=== PATIENT | male | born 1930 | race Caucasian/White ===

== ENCOUNTER 2016-07-08 11:50 | Inpatient (IN) | payer MEDICARE, OTHER ==
[~2016-07-08] VITALS: Ht 165.1 cm; Wt 70.8 kg
--- NOTE | ~2016-07-08 | PR ---
[place], [place] PROGRESS NOTE NAME: [id number] UNIT #: [id number] ROOM: 509 DOCTOR: ROSETTA BESS MD BIRTHDATE: [birth year] DOS: 07/10/2016 SUBJECTIVE: The patient is feeling much better. The abdominal pains are resolving and he has started eating. OBJECTIVE: VITAL SIGNS: Blood pressure 127/56, heart rate 74 beats per minute, breathing 20 times per minute, temperature 98 degrees Fahrenheit. GENERAL APPEARANCE: The patient is alert and oriented x 3, in no visible distress. HEENT AND NECK: Exam within normal limits. CARDIOVASCULAR SYSTEM: Heart rate is regular in rate and rhythm. S1 and S2 normally audible. LUNGS: Clear to auscultation. ABDOMEN: Soft, nontender. No obvious organomegaly. Bowel sounds are present. EXTREMITIES: Without significant cyanosis or edema. IMPRESSION: 1. The patient with acute sigmoid diverticulitis with localized perforation. He is clinically improving with Levaquin and Flagyl. The patient had failed outpatient treatment with Augmentin. 2. Benign prostatic hypertrophy, treated with medications and asymptomatic. 3. Benign essential hypertension with controlled blood pressures. 4. Coronary artery disease of [place] vessels without chest pains. 5. Mixed hyperlipidemia, treated with simvastatin. 6. Major depression, recurrent, mild, treated with citalopram. ROSETTA BESS MD CM:PNTRANS [id number] ROSETTA BESS MD 07/10/162115 interface
--- NOTE | ~2016-07-08 | PR ---
[place], [place] PROGRESS NOTE [id number] UN[facility] #: [id number] ROOM: 509 DOCTOR: LALY SORIANO MD BIRTHDATE: [birth year] DOS: 07/09/2016 SUBJECTIVE: The patient is about the same, does not have any new complaints. OBJECTIVE: VITAL SIGNS: ____ pressure 133/70, pulse is 72, respirations 14, temperature 98.1. LUNGS: Diminished breath sounds. HEART: Regular. ABDOMEN: Obese, soft, some minimal tenderness in the left lower quadrant. EXTREMITIES: Without any edema. LABORATORY DATA: WBC count is 7.7, hemoglobin 11.2. Lactic acid is 0.8. Chest x-ray is unremarkable. CT of the abdomen shows a perforated acute diverticulitis with pericolonic abscess present. ASSESSMENT AND PLAN: 1. Acute diverticulitis with perforation, pericolonic abscess, which seems to have localized. The patient has normal white cell count, no fevers, no lactic acid elevation. Dr. Rashid is following and the plan is to just keep him n.p.o. on IV fluids and IV antibiotics and feels that this will resolve on its own without surgical option. 2. Benign hypertension, controlled. 3. Benign prostatic hypertrophy, already on meds. No changes made in any of his medications today. LALY SORIANO MD CM:PNTRANS [phone] LALY SORIANO MD 07/09/16 0856 interface
--- NOTE | ~2016-07-08 | WRIGHTHP ---
[place], [place] PATIENT HISTORY AND PHYSICAL EXAM NAME: ED JENNINGS V [facility] #: [id number] UNIT #: [id number] ROOM: 509 DOCTOR: ROSETTA BESS MD BIRTHDATE: [birth year] DOS: 07/08/2016 HISTORY OF PRESENT ILLNESS: The patient is an 86-year-old gentleman with a past medical history of: 1. Coronary artery disease and PA. 2. Benign essential hypertension. 3. GERD and esophagitis. 4. Mixed hyperlipidemia. 5. Major depression, recurrent, mild. 6. Chronic gouty arthritis. 7. BPH and urinary retention, controlled, treated. The patient was sent over for admission when he was found to have perforated diverticulitis of the sigmoid colon, which was localized on CT scan of the abdomen and pelvis performed by Dr. Rashid today. The patient had this persisting left lower quadrant pain for some time now and he was eating less and losing weight. No nausea, vomiting, diarrhea, or constipation. No chest pain or shortness of breath. No other GI or urinary symptoms. REVIEW OF SYSTEMS: LUNGS: No shortness of breath or wheezing. GASTROINTESTINAL: No nausea, vomiting, diarrhea, or constipation. FAMILY HISTORY: Noncontributory. SOCIAL HISTORY: Denies smoking cigarettes, alcohol or drug abuse. MEDICATIONS: Propranolol, finasteride, citalopram, aspirin, Protonix, prazosin, simvastatin, hydromorphone. ALLERGIES: KNOWN ALLERGIES TO ALLOPURINOL, CEFAZOLIN, CEFTRIAXONE, SULPHUR. PHYSICAL EXAMINATION: GENERAL: The patient is alert and oriented x 3, in no visible distress. HEENT AND NECK: Extraocular movements are intact. Sclerae are anicteric. Oral mucosa is moist and clean. No obvious facial weakness. Neck is supple without any lymphadenopathy. No thyromegaly. No JVD. No carotid arterial bruits. LUNGS: Clear to auscultation. No wheezing. No rhonchi. CARDIOVASCULAR SYSTEM: Heart rate is regular in rate and rhythm. S1 and S2 normally audible. No significant murmur or any other abnormal cardiac sounds. ABDOMEN: Left lower quadrant tenderness. No rigidity, guarding, or rebound tenderness. EXTREMITIES: Without significant cyanosis or edema. Warm to touch. CENTRAL NERVOUS SYSTEM: Alert and oriented x 3. Cranial nerves II-XII are intact. Speech is normal. The patient is able to move all extremities. Normal muscle strength. Deep tendon reflexes are equal on both sides. Plantars were downgoing. LABORATORY DATA: No leukocytosis. Hemoglobin 13. CT scan results as mentioned above. BUN and creatinine 34 and 1.5. [place], [place] PATIENT HISTORY AND PHYSICAL EXAM [facility]: [facility] [id number] UNIT #: [id number] ROOM: 509 DOCTOR: ROSETTA BESS MD BIRTHDATE: [birth year] IMPRESSION AND PLAN: 1. The patient presenting with acute over chronic perforated diverticulitis of the sigmoid colon, the perforation is localized and suspicion of pericolonic abscess. The patient was kept n.p.o. and started on IV Levaquin and Flagyl, with Dr. Rashid, the surgeon on consult. I will start him on hydration with normal saline and follow his serum electrolytes. The patient is n.p.o. for now. 2. Coronary artery disease of [place] vessels without any chest pain. He remains on aspirin. 3. Benign prostatic hyperplasia and urinary retention, asymptomatic with finasteride and prazosin, which have been continued. 4. Mixed hyperlipidemia, for which the patient takes simvastatin. 5. Major depression, mild, recurrent. The patient is on citalopram, which has been continued. ROSETTA BESS MD CM:HISPHYS:PATIENT HISTORY AND PHYSICAL EXAMINATION 41 [phone] ROSETTA BESS MD 07/09/16 0132 interface
--- NOTE | ~2016-07-08 | DS ---
[place], [place] DISCHARGE SUMMARY [facility]: [facility] #: [id number] UNIT #: [id number] ROOM: 509 DOCTOR: MARIA ALEJANDRA GALARZAROSETTA Aguilar BIRTHDATE: [birth year] DOS: 07/11/2016 DISCHARGE DIAGNOSES: 1. Acute sigmoid diverticulitis with localized perforation and abscess treated with Flagyl and Levaquin. 2. Benign prostatic hypertrophy. 3. Benign essential hypertension. 4. Coronary artery disease of the [place] vessels. 5. Mixed hyperlipidemia. 6. Major depression, recurrent, mild. 7. Benign essential hypertension. 8. Gastroesophageal reflux disease and esophagitis. 9. Mixed hyperlipidemia. 10. Chronic gouty arthritis. 11. BPH and urine retention. 12. Chronic kidney disease stage 3A. HOSPITAL COURSE: The patient was admitted with a perforated diverticulitis as seen on the CAT scan of the abdomen and pelvis. Dr. Rashid was consulted and followed the patient and has cleared him for discharge after he is tolerating his diet and feeling better, although he still has left lower quadrant pains, but improved from before. I will give him 2 more weeks of antibiotics at home orally. Coronary artery disease of [place] vessels without chest pains. The patient remains on aspirin. Benign prostatic hypertrophy and urinary retention is symptomatic with finasteride and prazosin being treated and continued. Mixed hyperlipidemia treated with simvastatin, which was continued. Major depression, which is recurrent, but mild, treated with citalopram which is working. LABORATORY DATA: CT scan results as mentioned above. No leukocytosis. Hemoglobin 10.3, BUN and creatinine 28 and 1.4. Chronic kidney disease stage 3A. No leukocytosis. Hemoglobin of 10.3. Blood cultures were negative. DISCHARGE MANAGEMENT: Levaquin 750 mg every other day 8 doses and metronidazole 500 mg 3 times a day for 10 days, propranolol 80 mg daily, finasteride 5 mg a day, citalopram 20 mg a day, aspirin 325 mg a day, Protonix 40 mg a day, simvastatin 10 mg a day, prazosin 2 mg a day. Follow up at the office with me in 3 days. The patient's pain was controlled with p.r.n. Dilaudid and nausea was controlled with Zofran, but these symptoms have resolved now. [place], [place] DISCHARGE SUMMARY NAME: ED JENNINGS V UNIT #: [id number] ROOM: [facility] DOCTOR: ROSETTA BESS MD BIRTHDATE: [birth year] ROSETTA BESS MD CM:JOSE [phone] ROSETTA BESS MD 07/11/16 1855 interface
[~2016-07-08 11:50] MED LIST: ASPIR-TRIN325 MG PO; CITALOPRAM20 MG PO; DAYPRO600 M1 PO; FINASTERIDE5 M1 PO; PROPRANOLOL HYD80 M1 PO; PROTONIX40 MG PO; SIMVASTATIN20 MG PO; TERAZOSIN HCL2 M1 PO; ULORIC40 MG PO; VITAMIN D1000 IU PO
[2016-07-08 12:02] VITALS: BP 170/80
[2016-07-08 12:41] LABS: BASO % 0.5 % (0.0-1.0); EOS # 0.2 10*3/uL (0.0-0.4); EOS % 3.1 % (1.0-4.0); HEMOGLOBIN 13.1 g/dl (14.0-18.0); IG # 0.1 10*3/uL (0.0-0.1); LYMPH # 1.1 10*3/uL (1.3-4.4); LYMPH % 13.5 % (27.0-41.0); MEAN CELL VOLUME 87.6 fl (80.0-94.0); MEAN PLATELET VOLUME 9.2 fl (9.6-12.3); MONO # 0.4 10*3/uL (0.1-1.0); MONO % 5.5 % (3.0-9.0); NEUT % 76.3 % (47.0-73.0); PLATELET COUNT AUTOMATED 274 10*3/uL (130-400); RED BLOOD COUNT 4.68 10*6/uL (4.50-5.90); RED CELL DISTRI WIDTH 13.9 % (0-14.5); WHITE BLOOD COUNT 7.8 10*3/uL (4.8-10.8)
[2016-07-08 12:58] LABS: ALBUMIN 3.2 gm/dl (3.1-4.5); BILIRUBIN, TOTAL 0.5 mg/dl (0.2-1.0); POTASSIUM 4.6 mmol/L (3.5-5.1); TOTAL PROTEIN 7.9 gm/dL (6.4-8.2)
[2016-07-08 13:28] LABS: BILIRUBIN NEGATIVE (NEGATIVE); BLOOD NEGATIVE (NEGATIVE); CLARITY SL CLOUDY (CLEAR); COLOR YELLOW (YELLOW); GLUCOSE NEGATIVE (NEGATIVE); KETONE NEGATIVE (NEGATIVE); LEUKO ESTERASE 1+ (NEGATIVE); NITRITE NEGATIVE (NEGATIVE); PROTEIN NEGATIVE (NEGATIVE)
[2016-07-08 13:38] LABS: BACTERIA 1+; URINE REFLEX COMMENT YES (NO); WBC 21-30 wbc/hpf (0-5)
[2016-07-08] MEDS ORDERED: NAPROXEN DELAY375 MG PO (14:00)
[2016-07-08 14:19] VITALS: BP 185/75
[2016-07-08] MEDS ORDERED: SENEXON8.6 M1 PO (15:31)
[2016-07-08] MEDS ORDERED: COL-RITE50 MG PO (15:31)
[2016-07-08 16:00] VITALS: BP 159/64
[2016-07-08 20:00] VITALS: BP 107/47
[2016-07-09] VITALS: BP 127/63
[2016-07-09 04:00] VITALS: BP 133/70
[2016-07-09 06:32] LABS: BASO % 0.4 % (0.0-1.0); EOS # 0.2 10*3/uL (0.0-0.4); EOS % 2.1 % (1.0-4.0); HEMATOCRIT 36.1 % (42.0-52.0); HEMOGLOBIN 11.2 g/dl (14.0-18.0); IG # 0.1 10*3/uL (0.0-0.1); LYMPH # 0.7 10*3/uL (1.3-4.4); LYMPH % 8.9 % (27.0-41.0); MEAN CELL VOLUME 89.4 fl (80.0-94.0); MEAN CORPUSCULAR HGB 27.7 pg (27.0-31.0); MEAN PLATELET VOLUME 9.4 fl (9.6-12.3); MONO # 0.5 10*3/uL (0.1-1.0); MONO % 6.4 % (3.0-9.0); NEUT # 6.2 10*3/uL (2.3-7.9); NEUT % 81.4 % (47.0-73.0); PLATELET COUNT AUTOMATED 241 10*3/uL (130-400); RED BLOOD COUNT 4.04 10*6/uL (4.50-5.90); RED CELL DISTRI WIDTH 13.9 % (0-14.5); WHITE BLOOD COUNT 7.7 10*3/uL (4.8-10.8)
[2016-07-09 07:06] LABS: BUN 32 mg/dl (7-24); CARBON DIOXIDE 24 mmol/L (21-32); CHLORIDE 111 mmol/L (98-107); EST GLOM FILT AFRICAN AMERICAN > 60 ml/min; GLUCOSE 81 mg/dL (65-99); POTASSIUM 4.9 mmol/L (3.5-5.1); SODIUM 145 mmol/L (136-145)
[2016-07-09 08:00] VITALS: BP 112/50
[2016-07-09 16:00] VITALS: BP 113/50
[2016-07-09 20:00] VITALS: BP 117/53
[2016-07-10] VITALS: BP 190/88
[2016-07-10 07:03] LABS: BASO % 0.5 % (0.0-1.0); EOS # 0.2 10*3/uL (0.0-0.4); EOS % 2.5 % (1.0-4.0); HEMATOCRIT 35.4 % (42.0-52.0); IG # 0.1 10*3/uL (0.0-0.1); LYMPH # 0.7 10*3/uL (1.3-4.4); LYMPH % 8.9 % (27.0-41.0); MEAN CELL VOLUME 89.4 fl (80.0-94.0); MEAN CORPUSCULAR HGB 27.8 pg (27.0-31.0); MEAN CORPUSCULAR HGB CONC 31.1 g/dl (33.0-37.0); MONO # 0.5 10*3/uL (0.1-1.0); MONO % 6.1 % (3.0-9.0); NEUT # 6.1 10*3/uL (2.3-7.9); NEUT % 81.2 % (47.0-73.0); PLATELET COUNT AUTOMATED 206 10*3/uL (130-400); RED BLOOD COUNT 3.96 10*6/uL (4.50-5.90); RED CELL DISTRI WIDTH 13.9 % (0-14.5); WHITE BLOOD COUNT 7.6 10*3/uL (4.8-10.8)
[2016-07-10 07:28] LABS: POTASSIUM 4.7 mmol/L (3.5-5.1)
[2016-07-10 08:00] VITALS: BP 152/70
[2016-07-10 12:00] VITALS: BP 127/56
[2016-07-10 16:00] VITALS: BP 108/46
[2016-07-10 20:00] VITALS: BP 127/55
[2016-07-11] VITALS: BP 133/60
[2016-07-11 06:49] LABS: BASO % 0.4 % (0.0-1.0); EOS # 0.3 10*3/uL (0.0-0.4); EOS % 4.4 % (1.0-4.0); HEMATOCRIT 32.5 % (42.0-52.0); HEMOGLOBIN 10.3 g/dl (14.0-18.0); IG # 0.1 10*3/uL (0.0-0.1); LYMPH # 0.7 10*3/uL (1.3-4.4); LYMPH % 9.8 % (27.0-41.0); MEAN CELL VOLUME 88.6 fl (80.0-94.0); MEAN CORPUSCULAR HGB 28.1 pg (27.0-31.0); MEAN CORPUSCULAR HGB CONC 31.7 g/dl (33.0-37.0); MEAN PLATELET VOLUME 9.8 fl (9.6-12.3); MONO # 0.4 10*3/uL (0.1-1.0); MONO % 6.4 % (3.0-9.0); NEUT # 5.4 10*3/uL (2.3-7.9); PLATELET COUNT AUTOMATED 219 10*3/uL (130-400); RED BLOOD COUNT 3.67 10*6/uL (4.50-5.90); RED CELL DISTRI WIDTH 14.1 % (0-14.5); WHITE BLOOD COUNT 6.9 10*3/uL (4.8-10.8)
[2016-07-11 08:00] VITALS: BP 150/64
[2016-07-11 12:00] VITALS: BP 150/64
[2016-07-11 16:00] VITALS: BP 152/61
[2016-07-11] MEDS ORDERED: FLAGYL500 MG PO (18:12)
[2016-07-11] MEDS ORDERED: LEVAQUIN750 M1 PO (18:12)
== END 2016-07-11 19:00 | disposition home or self-care (01) | DRG 392 ==
LOC: ED 11:50 → 5E 13:36 → EDHOLD 13:36 → 5E 13:51
PROVIDERS: Emergency Medicine; Internal Medicine
DX: K57.20 Diverticulitis of large intestine with perforation and abscess without bleeding (principal); F33.0 Major depressive disorder, recurrent, mild; N18.3 Chronic kidney disease, stage 3 (moderate); N39.0 Urinary tract infection, site not specified; N40.1 Benign prostatic hyperplasia with lower urinary tract symptoms; I12.9 Hypertensive chronic kidney disease with stage 1 through stage 4 chronic kidney disease, or unspecified chronic kidney disease; I25.10 Atherosclerotic heart disease of native coronary artery without angina pectoris; E78.2 Mixed hyperlipidemia; K21.0 Gastro-esophageal reflux disease with esophagitis; M1A.9XX0 Chronic gout, unspecified, without tophus (tophi); R33.8 Other retention of urine; I25.2 Old myocardial infarction; Z88.2 Allergy status to sulfonamides; Z88.1 Allergy status to other antibiotic agents; Z88.8 Allergy status to other drugs, medicaments and biological substances; Z79.82 Long term (current) use of aspirin; Z79.899 Other long term (current) drug therapy; Z98.49 Cataract extraction status, unspecified eye; Z95.1 Presence of aortocoronary bypass graft

== ENCOUNTER → 2016-07-30 | Outpatient (CLI) | payer MEDICARE, OTHER ==
[~2016-07-30] MED LIST changes: +COL-RITE50 MG PO; +FLAGYL500 MG PO; +LEVAQUIN750 M1 PO; +NAPROXEN DELAY375 MG PO; +SENEXON8.6 M1 PO
== END | disposition home or self-care (01) ==
LOC: CT 02:42
DX: R10.9 Unspecified abdominal pain (principal)

== ENCOUNTER 2016-08-04 12:16 | Emergency (ER) | payer MEDICARE, OTHER ==
[~2016-08-04] VITALS: Ht 165.1 cm; Wt 70.3 kg
[2016-08-04 12:53] LABS: BASO % 0.1 % (0.0-1.0); EOS % 0.1 % (1.0-4.0); HEMATOCRIT 37.6 % (42.0-52.0); IG # 0.1 10*3/uL (0.0-0.1); LYMPH # 0.8 10*3/uL (1.3-4.4); LYMPH % 6.2 % (27.0-41.0); MEAN CELL VOLUME 88.9 fl (80.0-94.0); MEAN CORPUSCULAR HGB 28.4 pg (27.0-31.0); MEAN CORPUSCULAR HGB CONC 31.9 g/dl (33.0-37.0); MEAN PLATELET VOLUME 9.6 fl (9.6-12.3); MONO % 7.9 % (3.0-9.0); NEUT # 10.7 10*3/uL (2.3-7.9); NEUT % 85.1 % (47.0-73.0); PLATELET COUNT AUTOMATED 185 10*3/uL (130-400); RED BLOOD COUNT 4.23 10*6/uL (4.50-5.90); RED CELL DISTRI WIDTH 16.6 % (0-14.5); WHITE BLOOD COUNT 12.6 10*3/uL (4.8-10.8)
[2016-08-04 13:13] LABS: ALBUMIN 3.4 gm/dl (3.1-4.5); BUN 24 mg/dl (7-24); CARBON DIOXIDE 26 mmol/L (21-32); CHLORIDE 110 mmol/L (98-107); EST GLOM FILT AFRICAN AMERICAN 52 ml/min; GLUCOSE 122 mg/dL (65-99); POTASSIUM 4.7 mmol/L (3.5-5.1); SGOT/AST 11 IU/L (3-35); SGPT/ALT 18 U/L (12-78); SODIUM 146 mmol/L (136-145); TOTAL PROTEIN 7.4 gm/dL (6.4-8.2)
[2016-08-04 13:17] LABS: ALKALINE PHOSPHATASE 71 U/L (45-117); BILIRUBIN, TOTAL 0.6 mg/dl (0.2-1.0); TROPONIN I < 0.015 ng/ml (<0.045)
[2016-08-04 13:51] LABS: BILIRUBIN 1+ (NEGATIVE); BLOOD NEGATIVE (NEGATIVE); CLARITY SL CLOUDY (CLEAR); COLOR YELLOW (YELLOW); GLUCOSE NEGATIVE (NEGATIVE); KETONE TRACE (NEGATIVE); LEUKO ESTERASE 1+ (NEGATIVE); NITRITE NEGATIVE (NEGATIVE); PROTEIN 1+ (NEGATIVE)
[2016-08-04 14:10] LABS: BACTERIA 2+; URINE REFLEX COMMENT YES (NO)
[2016-08-04 18:14] VITALS: BP 150/82
== END 2016-08-04 20:20 | disposition short-term general hospital (02) ==
LOC: ED 12:16
PROVIDERS: Emergency Medicine
DX: K57.92 Diverticulitis of intestine, part unspecified, without perforation or abscess without bleeding (principal); T82.898A Other specified complication of vascular prosthetic devices, implants and grafts, initial encounter; N39.0 Urinary tract infection, site not specified; J18.9 Pneumonia, unspecified organism; Z88.1 Allergy status to other antibiotic agents; Z88.2 Allergy status to sulfonamides; Z88.8 Allergy status to other drugs, medicaments and biological substances; Z79.82 Long term (current) use of aspirin; Z79.899 Other long term (current) drug therapy

== ENCOUNTER 2017-01-23 11:03 | Inpatient (IN) | payer MEDICARE, OTHER ==
[~2017-01-23] VITALS: Ht 157.4 cm; Wt 67.8 kg
--- NOTE | ~2017-01-23 | PR ---
[place], [place] PROGRESS NOTE [id number] UNIT #: [id number] ROOM: 405 DOCTOR: ROSETTA BESS MD BIRTHDATE: [birth year] DOS: 01/24/2017 SUBJECTIVE: The patient is still constipated. He has some pelvic pain, but overall starting to feel better. OBJECTIVE: VITAL SIGNS: Blood pressure 119/62, heart rate 75 beats per minute, breathing 20 times per minute, temperature 98 degrees Fahrenheit. GENERAL APPEARANCE: The patient is alert and oriented x 3, in no visible distress. HEENT AND NECK: Exam within normal limits. CARDIOVASCULAR SYSTEM: Heart rate is regular in rate and rhythm. S1 and S2 normally audible. LUNGS: Clear to auscultation. ABDOMEN: Soft, nontender. No obvious organomegaly. Bowel sounds are present. EXTREMITIES: Without significant cyanosis or edema. IMPRESSION: 1. Acute mid sigmoid diverticulitis, being treated with IV meropenem and Flagyl. 2. Persistent acute constipation. I will give patient mag citrate because he still has not moved his bowels. 3. Benign essential hypertension, with controlled blood pressures. 4. Coronary artery disease of [place] vessels without any chest pains. 5. Mixed hyperlipidemia, treated and controlled. 6. Chronic kidney disease stage 3 is stable. ROSETTA BESS MD CM:PNTRANS [phone] ROSETTA BESS MD 01/24/17 1523 interface
--- NOTE | ~2017-01-23 | DS ---
[place], [place] DISCHARGE SUMMARY NAME: ED JENNINGS V [facility] #: [id number] UNIT #: [id number] ROOM: 405 DOCTOR: ROSETTA BESS MD BIRTHDATE: [birth year] DOS: 01/27/2017 DISCHARGE DIAGNOSES: 1. Acute sigmoid diverticulitis. 2. Resistant urine infection and cystitis with Escherichia coli. 3. Left lower quadrant pains. 4. Chronic kidney disease stage 3. 5. History of mixed hyperlipidemia. 6. Coronary artery disease of [place] vessels. 7. Benign essential hypertension. 8. Chronic constipation. 9. Major depression, recurrent, mild. 10. Gastroesophageal reflux disease and esophagitis. 11. Chronic gouty arthritis. 12. Benign prostatic hypertrophy and urinary retention. HOSPITAL COURSE: The patient presented to the Emergency Department with increasing left lower quadrant and lower abdominal pain and significant constipation. The patient admitted and treated for diverticulitis which showed up on the CT scan of the pelvis and has severe left lower quadrant pains have resolved. Severe constipation treated with laxatives and the patient is moving bowels now. Resistant urinary tract infection and cystitis with E. coli, treated with meropenem and the patient will take Macrobid at home. Chronic persistent constipation treated with MiraLax, Dulcolax suppositories and enemas. Now, the patient is moving his bowels. Benign essential hypertension with controlled blood pressures. Coronary artery disease of [place] vessels without chest pains. Mixed hyperlipidemia. Continue treatment. Chronic kidney disease stage 3A, stable. [place], [place] DISCHARGE SUMMARY NAME: ED JENNINGS V [facility] #: [id number] UNIT #: [id number] ROOM: 405 DOCTOR: ROSETTA BESS MD BIRTHDATE: [birth year] ROSETTA BESS MD CM:DISCHARG 45 [phone] ROSETTA BESS MD 01/27/172046 interface
--- NOTE | ~2017-01-23 | WRIGHTHP ---
[place], [place] PATIENT HISTORY AND PHYSICAL EXAM NAME: ED JENNINGS V [facility] #: [id number] UNIT #: [id number] ROOM: 405 DOCTOR: ROSETTA BESS MD BIRTHDATE: [birth year] DOS: 01/23/2017 HISTORY OF PRESENT ILLNESS: An 86-year-old gentleman with a past medical history of: 1. Sigmoid diverticulitis with localized perforation and abscess. 2. Benign prostatic hypertrophy. 3. Benign essential hypertension. 4. Coronary artery disease of the lower [place] vessels. 5. Mixed hyperlipidemia. 6. Major depression, recurrent, mild. 7. GERD and esophagitis. 8. Chronic gouty arthritis. 9. BPH and urinary retention. 10. Chronic kidney disease stage 3A. The patient was seen recently at the office with constipation and lower abdominal pains, considered to be from diverticulitis and treatment was started. The patient presented to the Emergency Department at [facility] today with persistent constipation and lower abdominal pains and CT of the abdomen confirmed acute diverticulitis involving mid sigmoid colon. The patient was found to have resistant urine infection with E. coli. Some urine samples were sent from my office 2 days earlier. REVIEW OF SYSTEMS: LUNGS: No increasing shortness of breath. GASTROINTESTINAL: No nausea, vomiting, diarrhea, but he does have constipation. CARDIOVASCULAR: No chest pains or palpitations. SOCIAL HISTORY: Denies smoking cigarettes, alcohol and drug abuse. FAMILY HISTORY: Noncontributory. HOME MEDICATIONS: Senna, propranolol, finasteride, citalopram, aspirin, Protonix, terazosin, simvastatin. ALLERGIES: Known allergies to ALLOPURINOL, CEFAZOLIN, CEFTRIAXONE and SULFA. PHYSICAL EXAMINATION: GENERAL: Alert, oriented, in no visible distress. VITAL SIGNS: Blood pressure 176/63, heart rate of 59 beats per minute, breathing 20 times per minute, temperature 98 degrees Fahrenheit. HEENT AND NECK: Extraocular movements are intact. Sclerae are anicteric. Oral mucosa is moist and clean. No obvious facial weakness. Neck is supple without any lymphadenopathy. No thyromegaly. No JVD. No carotid arterial bruits. LUNGS: Clear to auscultation. No wheezing. No rhonchi. CARDIOVASCULAR SYSTEM: Heart rate is regular in rate and rhythm. S1 and S2 normally audible. No significant murmur or any other abnormal cardiac sounds. ABDOMEN: Lower abdominal tenderness. EXTREMITIES: Without significant cyanosis or edema. Warm to touch. CENTRAL NERVOUS SYSTEM: Alert and oriented x 3. Cranial nerves II-XII are [place], [place] PATIENT HISTORY AND PHYSICAL EXAM NAME: ED JENNINGS V UNIT #: [id number] ROOM: 405 DOCTOR: ROSETTA BESS MD BIRTHDATE: [birth year] intact. Speech is normal. The patient is able to move all extremities. Normal muscle strength. Deep tendon reflexes are equal on both sides. Plantars were downgoing. LABORATORY DATA: CT scan results as mentioned above. BUN and creatinine 35 and 0.45. No leukocytosis. Hemoglobin is 13. Lactic acid normal. Urine culture is growing resistant E. coli. IMPRESSION AND PLAN: 1. Urinary tract infection with resistant Escherichia coli, to be treated with IV meropenem. 2. Acute mid sigmoid recurrent diverticulitis, to be treated with Flagyl and meropenem. 3. Chronic persistent constipation. I started the patient on MiraLax. The patient already on sennoside that he was taking at home. 4. Benign essential hypertension. I will continue treatment and monitor blood pressures. 5. Coronary artery disease of [place] vessels without any angina symptoms. 6. Mixed hyperlipidemia, being treated, continue treatment. 7. Chronic kidney disease stage 3A, stable. ROSETTA BESS MD CM:HISPHYS:PATIENT HISTORY AND PHYSICAL EXAMINATION 10 36 ROSETTA BESS MD 01/23/172035 interface
--- NOTE | ~2017-01-23 | PR ---
[place], [place] PROGRESS NOTE [id number] #: [id number] ROOM: 405 DOCTOR: ROSETTA BESS MD BIRTHDATE: [birth year] DOS: 01/26/2017 SUBJECTIVE: The patient finally saying lower abdominal pains have improved, that he is moving his bowels. OBJECTIVE: VITAL SIGNS: Blood pressure 148/92, heart rate 79 beats per minute, breathing 18 times per minute, temperature is 98.2 degrees Fahrenheit. HEENT AND NECK: Exam within normal limits. CARDIOVASCULAR SYSTEM: Heart rate is regular in rate and rhythm. S1 and S2 normally audible. LUNGS: Clear to auscultation. ABDOMEN: Soft, nontender. No obvious organomegaly. Bowel sounds are present. EXTREMITIES: Without significant cyanosis or edema. IMPRESSION: 1. The patient with failure of outpatient treatment and acute diverticulitis with significant lower abdominal pains, left lower quadrant pains, finally improved with treatment with antibiotics. 2. Persistent constipation, improved with laxatives. 3. Urinary tract infection with resistant Escherichia coli, being treated with meropenem intravenously. 4. The patient was evaluated by Dr. Medrano, the audio experience expert. 5. Coronary artery disease of [place] vessels, without chest pains. 6. Chronic kidney disease stage 3, stable. ROSETTA BESS MD CM:PNTRANS [id number] ROSETTA BESS MD 01/26/17 2257 interface
--- NOTE | ~2017-01-23 | PR ---
[place], [place] PROGRESS NOTE NAME: ED JENNINGS V [facility] #: [id number] UNIT #: [id number] ROOM: 405 DOCTOR: ROSETTA BESS MD BIRTHDATE: [birth year] DOS: 01/25/2017 SUBJECTIVE: The patient is still complaining of lower abdominal pains, although he has started moving his bowels, but he feels bloated. OBJECTIVE: VITAL SIGNS: Blood pressure 139/73, heart rate of 72 beats per minute, breathing 20 times per minute, temperature 98.5 degrees Fahrenheit. GENERAL APPEARANCE: The patient is alert and oriented x 3, in no visible distress. HEENT AND NECK: Exam within normal limits. CARDIOVASCULAR SYSTEM: Heart rate is regular in rate and rhythm. S1 and S2 normally audible. LUNGS: Clear to auscultation. ABDOMEN: Soft, nontender. No obvious organomegaly. Bowel sounds are present. EXTREMITIES: Without significant cyanosis or edema. IMPRESSION: 1. Continued lower abdominal pains and he is being treated for diverticulitis. 2. Acute sigmoid diverticulitis. I will get opinion from Surgery as well as Gastroenterology because of persistent pains despite of treatment with antibiotics. His blood cultures have been normal. No leukocytosis. 3. Urinary tract infection with Escherichia coli, which is resistant, but sensitive to meropenem and is being treated. 4. Chronic persistent constipation, improved with laxatives. The patient remains on MiraLax. 5. Benign essential hypertension, with controlled blood pressures. 6. Coronary artery disease of [place] vessels, without chest pains. 7. Mixed hyperlipidemia, treated. 8. Chronic kidney disease stage 3, stable. ROSETTA BESS MD CM:PNTRANS [phone] ROSETTA BESS MD 01/25/172223 interface
[~2017-01-23 11:03] MED LIST changes: +VITAMIN D-32000 UNI1 PO; -VITAMIN D1000 IU PO
[2017-01-23 11:11] VITALS: BP 123/70
[2017-01-23 12:04] LABS: BASO % 0.2 % (0.0-1.0); EOS # 0.2 10*3/uL (0.0-0.4); HEMATOCRIT 41.1 % (42.0-52.0); HEMOGLOBIN 13.3 g/dl (14.0-18.0); LYMPH # 0.9 10*3/uL (1.3-4.4); LYMPH % 10.6 % (27.0-41.0); MEAN CELL VOLUME 91.1 fl (80.0-94.0); MEAN CORPUSCULAR HGB 29.5 pg (27.0-31.0); MEAN CORPUSCULAR HGB CONC 32.4 g/dl (33.0-37.0); MEAN PLATELET VOLUME 9.5 fl (9.6-12.3); MONO # 0.4 10*3/uL (0.1-1.0); MONO % 5.1 % (3.0-9.0); NEUT # 6.6 10*3/uL (2.3-7.9); NEUT % 81.9 % (47.0-73.0); PLATELET COUNT AUTOMATED 186 10*3/uL (130-400); RED BLOOD COUNT 4.51 10*6/uL (4.50-5.90); RED CELL DISTRI WIDTH 14.8 % (0-14.5)
[2017-01-23 12:19] LABS: ALBUMIN 3.5 gm/dl (3.1-4.5); CREATININE 1.45 mg/dL (0.70-1.30); POTASSIUM 3.8 mmol/L (3.5-5.1); TOTAL PROTEIN 7.6 gm/dL (6.4-8.2)
--- NOTE | 2017-01-23 12:54 | NUR ---
PATIENT HAS COMPLETED HIS CONTRAST DRINK... CT NOTIFIED
--- NOTE | 2017-01-23 13:32 | NUR ---
PATIENT IS RESTING COMFORTABLY... GAVE PILLOW ANDBLANKET...
--- NOTE | 2017-01-23 14:32 | NUR ---
PT TO CT
--- NOTE | 2017-01-23 15:32 | NUR ---
CALLED AND UPDATED DAUGHTER WE WERE STILL WAITING ON CT...
[2017-01-23 16:04] VITALS: BP 134/78; BP 154/78
--- NOTE | 2017-01-23 17:07 | NUR ---
Time: 1706 A 86 year old MALE admitted to under services of DR. MARIA ALEJANDRA GALARZA,ROSETTA Ayoub Pt. arrived via bed from ER. Chief complaint: ABDOMINAL PAIN,CONSTIPATION. CRUZ SHIPMAN
[2017-01-23 17:15] VITALS: BP 176/63
--- NOTE | 2017-01-23 17:18 | NUR ---
Time: 1717 A 86 year old MALE admitted to under services of DR. MARIA ALEJANDRA GALARZA,ROSETTA Ayoub Pt. arrived via stretcher from ER. Chief complaint: DIVERTICULITIS, FAILED OUT PT TREATMENT. ALBERTO RUST
[2017-01-23 20:00] VITALS: BP 146/50
[2017-01-24] VITALS: BP 149/50
--- NOTE | 2017-01-24 00:32 | NUR ---
24 HR chart check completed.
--- NOTE | 2017-01-24 05:22 | NUR ---
Medicated with Tylenol po prn for abdominal pain. Will monitor effectiveness. Call light within reach.
[2017-01-24 06:31] LABS: BASO % 0.3 % (0.0-1.0); EOS # 0.2 10*3/uL (0.0-0.4); EOS % 2.8 % (1.0-4.0); HEMATOCRIT 37.9 % (42.0-52.0); HEMOGLOBIN 12.3 g/dl (14.0-18.0); LYMPH # 0.6 10*3/uL (1.3-4.4); LYMPH % 7.1 % (27.0-41.0); MEAN CELL VOLUME 90.5 fl (80.0-94.0); MEAN CORPUSCULAR HGB 29.4 pg (27.0-31.0); MEAN CORPUSCULAR HGB CONC 32.5 g/dl (33.0-37.0); MEAN PLATELET VOLUME 10.1 fl (9.6-12.3); MONO # 0.3 10*3/uL (0.1-1.0); MONO % 3.9 % (3.0-9.0); NEUT # 7.4 10*3/uL (2.3-7.9); NEUT % 85.6 % (47.0-73.0); PLATELET COUNT AUTOMATED 193 10*3/uL (130-400); RED BLOOD COUNT 4.19 10*6/uL (4.50-5.90); RED CELL DISTRI WIDTH 14.7 % (0-14.5); WHITE BLOOD COUNT 8.7 10*3/uL (4.8-10.8)
[2017-01-24 07:04] LABS: BUN 28 mg/dl (7-24); CHLORIDE 110 mmol/L (98-107); CREATININE 1.32 mg/dL (0.70-1.30); POTASSIUM 3.9 mmol/L (3.5-5.1); SODIUM 142 mmol/L (136-145)
[2017-01-24 08:00] VITALS: BP 119/62
--- NOTE | 2017-01-24 08:30 | NUR ---
Air Hoist Operator in to talk to patient. Patient states lives at HOME with HIS . There are 8 steps in the home. Physician: DR BESS Pharmacy: [facility] [place] Home health services: NONE Patient's level of ADLs: MINIMAL ASSIST Patient has working utilities: YES DME: NONE Follow-up physician's appointment after d/c: PREFERS TO MAKE HIS OWN APPT Does patient want to access PORTAL?: Discharge plan HOME. [facility] DENIES ANY DC NEEDS. STATES DAUGHTER LIVES NEXT DOOR.
--- NOTE | 2017-01-24 13:02 | NUR ---
PHYSICAL THERAPY PT eval completed on 4E this afternoon. Able to gait indep ad farideh; no balance deficits, etc. Did not admit to PT services. Encouraged pt to be up and walking frequently. Please see eval for details. Low complexity eval based on chart review, pt interview and results of eval. Leigh Brooks, PT
--- NOTE | 2017-01-24 14:36 | NUR ---
NOTIFIED DR BESS THAT PATIENT IS VOMITING. HE ORDERED A DULCOLAX SUPPOSITARY
--- NOTE | 2017-01-24 15:43 | NUR ---
PATIENT MEDICATED WITH IVP DILAUDID FOR PAIN RATED 10/10 AND IVP ZOFRAN FOR NAUSEA. PATIENT HAD A BROWN EMESIS.
[2017-01-24 16:00] VITALS: BP 176/60
--- NOTE | 2017-01-24 16:03 | NUR ---
PATIENT REFUSED MIRALAX. UNABLE TO TO TOLERATE. PATIENT IS VERY UNCOMFORTABLE. HE IS NAUSEATED AND VOMITING BROWN EMESIS.
--- NOTE | 2017-01-24 16:43 | NUR ---
PATIENT STATES MEDICATION EFFECTIVE. PAIN NOW 11/25
--- NOTE | 2017-01-24 17:38 | NUR ---
PATIENT GIVEN RECTAL DULCOLAX FOR CONSTIPATION
--- NOTE | 2017-01-24 19:30 | NUR ---
ASSUMED CARE OF PT AT THIS TIME, RESPS EASY AND NONLABORED WITH NO S/S OF DISTRESS, CALL LIGHT WITH IN REACH
[2017-01-25] VITALS: BP 148/59
--- NOTE | 2017-01-25 05:47 | NUR ---
PT C/O ABDOMINAL PAIN RATING 7/10, REQUESTED AND ADMINSTERED DILAUDID 1MG IV PRN PER ORDERS, WILL MONITOR EFFECTS, CALL LIGHT WITH IN REACH
[2017-01-25 05:58] LABS: BASO % 0.4 % (0.0-1.0); EOS # 0.1 10*3/uL (0.0-0.4); EOS % 0.7 % (1.0-4.0); HEMATOCRIT 36.2 % (42.0-52.0); HEMOGLOBIN 11.9 g/dl (14.0-18.0); LYMPH # 0.8 10*3/uL (1.3-4.4); LYMPH % 10.2 % (27.0-41.0); MEAN CELL VOLUME 89.6 fl (80.0-94.0); MEAN CORPUSCULAR HGB 29.5 pg (27.0-31.0); MEAN CORPUSCULAR HGB CONC 32.9 g/dl (33.0-37.0); MONO # 0.5 10*3/uL (0.1-1.0); MONO % 5.7 % (3.0-9.0); NEUT # 6.6 10*3/uL (2.3-7.9); NEUT % 82.3 % (47.0-73.0); PLATELET COUNT AUTOMATED 204 10*3/uL (130-400); RED BLOOD COUNT 4.04 10*6/uL (4.50-5.90); RED CELL DISTRI WIDTH 14.6 % (0-14.5); WHITE BLOOD COUNT 8.1 10*3/uL (4.8-10.8)
--- NOTE | 2017-01-25 06:31 | NUR ---
PT REPORTS DECREASED ABDOMINAL PAIN LEVEL AT THIS TIME, DILAUDID EFFECTIVE, CALL LIGHT WITH IN REACH
[2017-01-25 08:00] VITALS: BP 139/73
--- NOTE | 2017-01-25 11:01 | NUR ---
PATIENT RESTING IN BED CALL LIGHT IN REACH. PATIENT TOLERATED BREAKFAST AND HAS NO CO AT THIS TIME SEE SHIFT ASSESSMENT
[2017-01-25 12:00] VITALS: BP 184/75
--- NOTE | 2017-01-25 19:14 | NUR ---
CALLED DR BLANC MADE HIM AWARE OF CONSULT HE WILL SEE PATIENT IN MORNING
--- NOTE | 2017-01-25 19:30 | NUR ---
ASSUMED CARE OF PT AT THIS TIME, RESPS EASY AND NONLABORED WITH NO S/S OF DISTRESS CALL LIGHT WITH IN REACH
--- NOTE | 2017-01-25 20:39 | NUR ---
PATIENTRESTINGINBED CALLLIGHTINREACH RSPERNL
--- NOTE | 2017-01-25 22:19 | NUR ---
MEDICATED PATIENT WITH DILUAID FOR ABDOMNIAL PAIN WILLN REASSESS FOR EFFECTIVENESS
[2017-01-26] VITALS: BP 127/59
[2017-01-26 06:28] LABS: BASO % 0.3 % (0.0-1.0); EOS # 0.1 10*3/uL (0.0-0.4); HEMOGLOBIN 11.8 g/dl (14.0-18.0); LYMPH # 1.1 10*3/uL (1.3-4.4); LYMPH % 13.3 % (27.0-41.0); MEAN CELL VOLUME 90.2 fl (80.0-94.0); MEAN CORPUSCULAR HGB 30.4 pg (27.0-31.0); MEAN CORPUSCULAR HGB CONC 33.7 g/dl (33.0-37.0); MEAN PLATELET VOLUME 9.9 fl (9.6-12.3); MONO # 0.6 10*3/uL (0.1-1.0); MONO % 7.6 % (3.0-9.0); NEUT # 6.1 10*3/uL (2.3-7.9); NEUT % 77.3 % (47.0-73.0); PLATELET COUNT AUTOMATED 202 10*3/uL (130-400); RED BLOOD COUNT 3.88 10*6/uL (4.50-5.90); RED CELL DISTRI WIDTH 14.9 % (0-14.5); WHITE BLOOD COUNT 7.9 10*3/uL (4.8-10.8)
[2017-01-26 08:00] VITALS: BP 148/92
[2017-01-26 16:00] VITALS: BP 143/65
--- NOTE | 2017-01-26 19:58 | NUR ---
MEDICASTED WITH PRN DILAUDID FOR C/O MID ABD PAIN RATED 7-8 ON SCALE OF 1-10.
[2017-01-27] VITALS: BP 133/66
--- NOTE | 2017-01-27 00:34 | NUR ---
24 HR chart check completed.
[2017-01-27 08:00] VITALS: BP 155/65
--- NOTE | 2017-01-27 08:20 | NUR ---
PT RESTING IN BED. NO DISTRESS NOTED. NO VOICED C/O, WILL MONITOR
[2017-01-27 16:00] VITALS: BP 151/61
[2017-01-27] MEDS ORDERED: MIRALAX POWDER17 G1 PO (16:31)
[2017-01-27] MEDS ORDERED: FLAGYL250 MG PO (16:34)
[2017-01-27] MEDS ORDERED: MACROBID100 M1 PO (16:34)
--- NOTE | 2017-01-27 18:50 | NUR ---
Discharge instructions reviewed with patient/family. Patient receptive and verbalizes understanding. Follow-up care arranged. Written instructions given to patient/family. YESENIA BLUE
== END 2017-01-27 18:50 | disposition home or self-care (01) | DRG 690 ==
LOC: ED 11:03 → 4E 16:32 → EDHOLD 16:32 → 4E 16:34
PROVIDERS: Emergency Medicine; ADMIT Internal Medicine
DX: N30.90 Cystitis, unspecified without hematuria (principal); N18.3 Chronic kidney disease, stage 3 (moderate); F33.0 Major depressive disorder, recurrent, mild; D64.9 Anemia, unspecified; K57.32 Diverticulitis of large intestine without perforation or abscess without bleeding; I25.810 Atherosclerosis of coronary artery bypass graft(s) without angina pectoris; B96.20 Unspecified Escherichia coli [E. coli] as the cause of diseases classified elsewhere; E78.2 Mixed hyperlipidemia; I12.9 Hypertensive chronic kidney disease with stage 1 through stage 4 chronic kidney disease, or unspecified chronic kidney disease; K59.09 Other constipation; M1A.00X0 Idiopathic chronic gout, unspecified site, without tophus (tophi); K21.0 Gastro-esophageal reflux disease with esophagitis; N40.1 Benign prostatic hyperplasia with lower urinary tract symptoms; R33.8 Other retention of urine; Z88.2 Allergy status to sulfonamides; Z88.1 Allergy status to other antibiotic agents; Z88.8 Allergy status to other drugs, medicaments and biological substances; Z95.1 Presence of aortocoronary bypass graft; Z79.82 Long term (current) use of aspirin; Z79.899 Other long term (current) drug therapy; Z98.49 Cataract extraction status, unspecified eye; Z90.49 Acquired absence of other specified parts of digestive tract

== ENCOUNTER 2017-03-02 18:09 | Inpatient (IN) | payer MEDICARE, OTHER ==
[~2017-03-02] VITALS: Ht 162.5 cm; Wt 65.9 kg
--- NOTE | ~2017-03-02 | PR ---
[place], [place] PROGRESS NOTE NAME: [id number] UNIT #: [id number] ROOM: 408 DOCTOR: LALY SORIANO MD BIRTHDATE: [birth year] DOS: 03/06/2017 SUBJECTIVE: The patient is having diarrhea, he had 4-5 during the night and 2 this morning already. He has some minimal abdominal pain. OBJECTIVE: VITAL SIGNS: Graphic trend shows pressure 178/72, pulse of 72, respirations 18, temperature 97.9. LUNGS: Clear. HEART: Regular. ABDOMEN: Soft, some diffuse tenderness present, especially in the suprapubic area. EXTREMITIES: Without any edema. LABORATORY DATA: Urine culture shows E. coli #2 and Enterococcus faecalis. 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 No other labs available this morning. ASSESSMENT AND PLAN: 1. Acute segmental colitis, on IV Flagyl, Asacol. The patient is status post colonoscopy. 2. Diarrhea, will need to rule out antibiotic-induced diarrhea versus Clostridium difficile diarrhea. Adjustments in antibiotics will be made. Clostridium difficile titers have been ordered. Lomotil has also been ordered. 3. Sepsis, possibly from underlying urinary tract infection. Urine cultures again as noted above. The sepsis has resolved and the white cell count has come down. Routine labs will be ordered for tomorrow. PICC line has been ordered and hopefully to go to either [facility] or home with IV antibiotics. LALY SORIANO MD CM:PNTRANS [phone] LALY SORIANO MD 03/07/17 0640 interface
--- NOTE | ~2017-03-02 | WRIGHTHP ---
[place], [place] PATIENT HISTORY AND PHYSICAL EXAM NAME: ED JENNINGS V [facility] #: [id number] UNIT #: [id number] ROOM: 408 DOCTOR: ROSETTA BESS MD BIRTHDATE: [birth year] DOS: 03/02/2017 HISTORY OF PRESENT ILLNESS: The patient is an 86-year-old gentleman with a past medical history of: 1. Recent recurrent acute sigmoid diverticulitis. 2. Recurrent urinary tract infection with resistant Escherichia coli and cystitis. 3. Chronic kidney disease stage 3. 4. History of mixed hyperlipidemia. 5. Coronary artery disease of [place] vessels. 6. History of benign essential hypertension. 7. Chronic constipation. 8. Major depression, recurrent, mild. 9. Gastroesophageal reflux disease and esophagitis. 10. Chronic gouty arthritis. 11. Benign prostatic hypertrophy and urinary retention. The patient presented to the Emergency Department at [facility] with increasing complaints of left lower quadrant pains radiating to the suprapubic and right lower quadrant area for 2 days now, followed by nausea. No vomiting. The patient finally presented to the Emergency Department. He was found to have urinary tract infection. The patient recently had a urinary tract infection with resistant E. coli, so he was admitted and started on IV Zosyn after cultures were resent. The CT scan of the abdomen and pelvis showed some thickening of the colonic mucosa of the descending colon and proximal sigmoid. The patient was due and scheduled for outpatient colonoscopy already with Dr. Medrano No chest pain. No shortness of breath. No GI or urinary symptoms. The patient's belly pains are improving now. REVIEW OF SYSTEMS: LUNGS: No increasing shortness of breath or wheezing. GASTROINTESTINAL: Complains of lower abdominal pain, left lower quadrant and right lower quadrant and suprapubic area. No constipation. CARDIOVASCULAR: No chest pains or palpitations. FAMILY HISTORY: Noncontributory. HOME MEDICATIONS: Propranolol, finasteride, Uloric, citalopram, aspirin, Protonix, simvastatin, terazosin, ____, MiraLax. PHYSICAL EXAMINATION: GENERAL: Alert and oriented x 3, in no visible distress. HEENT AND NECK: Extraocular movements are intact. Sclerae are anicteric. Oral mucosa is moist and clean. No obvious facial weakness. Neck is supple without any lymphadenopathy. No thyromegaly. No JVD. No carotid arterial bruits. LUNGS: Clear to auscultation. No wheezing. No rhonchi. CARDIOVASCULAR SYSTEM: Heart rate is regular in rate and rhythm. S1 and S2 normally audible. No significant murmur or any other abnormal cardiac sounds. [place], [place] PATIENT HISTORY AND PHYSICAL EXAM NAME: ED JENNINGS V UNIT #: [id number] ROOM: [facility] DOCTOR: ROSETTA BESS MD BIRTHDATE: [birth year] ABDOMEN: Some discomfort in the left lower quadrant on abdominal palpation EXTREMITIES: Without significant cyanosis or edema. Warm to touch. CENTRAL NERVOUS SYSTEM: Alert and oriented x 3. Cranial nerves II-XII are intact. Speech is normal. The patient is able to move all extremities. Normal muscle strength. Deep tendon reflexes are equal on both sides. Plantars were downgoing. LABORATORY DATA: CT scan results as mentioned above. Leukocytosis of 12,800 has resolved with starting of antibiotics. Lactic acid level is normal. BUN and creatinine 26 and 1.5. IMPRESSION: 1. The patient presenting with acute urinary tract infection. Urine cultures are pending, but I will put him on IV Zosyn depending on his last urine culture results. I have consulted Infectious disease specialist to follow him. 2. Persistent thickening of the colonic mucosa and recurrent diverticulitis with thickening is present in the descending colon and proximal sigmoid colon. I am consulting Dr. Medrano for a colonoscopy, which has been pending for some time. 3. Chronic kidney disease stage 3, stable. 4. Coronary artery disease of the [place] vessels, without chest pains. 5. Benign essential hypertension, with controlled blood pressures. 6. Chronic constipation for which I will continue his MiraLax. ROSETTA BESS MD CM:HISPHYS:PATIENT HISTORY AND PHYSICAL EXAMINATION 51 [phone] ROSETTA BESS MD 03/03/171925 interface
--- NOTE | ~2017-03-02 | PR ---
[place], [place] PROGRESS NOTE [id number] UNIT #: [id number] ROOM: 408 DOCTOR: ROSETTA BESS MD BIRTHDATE: [birth year] DOS: 03/04/2017 SUBJECTIVE: Patient complaining of significant left lower abdominal pains after he received preparation for colonoscopy. Patient is status post colonoscopy now. OBJECTIVE: VITAL SIGNS: Blood pressure 164/84, heart rate 98 beats per minute, breathing 18 times per minute, temperature 97.6 degrees Fahrenheit. GENERAL APPEARANCE: The patient is alert and oriented x 3, in no visible distress. HEENT AND NECK: Exam within normal limits. CARDIOVASCULAR SYSTEM: Heart rate is regular in rate and rhythm. S1 and S2 normally audible. LUNGS: Clear to auscultation. ABDOMEN: Lower abdominal discomfort on palpation. EXTREMITIES: Without significant cyanosis or edema. IMPRESSION: 1. Patient complaining of some neck pain for which I will get x-rays of the cervical spine. 2. Lower abdominal pains after he underwent bowel prep for colonoscopy, to be treated with pain meds. 3. Patient with nonspecific segmental colitis and diverticulosis on colonoscopy. 4. Persistent urinary tract infection with gram-negative bacilli. Previously grew E. coli, which was quite resistant, so I will continue Zosyn and treat him for 1 week to complete treatment for urinary tract infection. 5. Chronic kidney disease stage 3, stable. 6. Coronary artery disease of the [place] vessels without chest pain. 7. Benign essential hypertension with elevated blood pressures from pain. 8. Chronic constipation, treated with MiraLax. ROSETTA BESS MD CM:PNTRANS [phone] ROSETTA BESS MD 03/05/17 0045 interface
--- NOTE | ~2017-03-02 | PR ---
[place], [place] PROGRESS NOTE NAME: ED JENNINGS V [facility] #: [id number] UNIT #: [id number] ROOM: 408 DOCTOR: DAVID SAMAYOA MD BIRTHDATE: [birth year] DOS: 03/08/2017 CARDIOLOGY PROGRESS NOTE. SUBJECTIVE: The patient was seen at his bedside today for followup of his episode of wide complex tachycardia. He is an 86-year-old man who has a history of coronary artery disease and is status post 3-vessel bypass surgery. He came into the hospital with abdominal pain, nausea and colitis. A PICC line was being inserted on 03/07/2017 and he developed short runs of nonsustained ventricular tachycardia. We were asked to assist in his evaluation. He has had no further ventricular tachycardia since the line was placed and secured in a proper position. An echocardiogram today showed normal left ventricular size and systolic function without any specific wall motion abnormalities. He feels well. PHYSICAL EXAMINATION: VITAL SIGNS: Today, his pulse is 70 and regular, blood pressure 158/79. He is afebrile. He weighs 65.9 kg and has a body mass index of 25. NECK: Supple. He has no jugular distention. Carotids are full. I heard no bruits. LUNGS: Respirations are unlabored. His chest is clear. HEART: Has a regular rhythm with an S4 gallop. ABDOMEN: Normally active. EXTREMITIES: Showed no edema. He appears to be doing well from a cardiac standpoint and does not show any findings to suggest a predilection to ventricular tachycardia. No further cardiac workup is planned at this time. He should continue to maintain normal electrolytes. I am making no changes in his medications and we will remain available to see him as needed. I have discussed this with Dr. Young. I thank Dr. Young and Dr. Araujo for asking our advice regarding his care. DAVID SAMAYOA MD CM:PNTRANS [phone] DAVID SAMAYOA MD 03/09/17 0558 interface
--- NOTE | ~2017-03-02 | O ---
[place], [place] OPERATIVE NOTE NAME: ED JENNINGS V UNIT #: [id number] ROOM: 408 DOCTOR: ARUNA KING MD BIRTHDATE: [birth year] DOS: The patient has presented with a chief complaint of abdominal pain, undergoing investigation. Borderline anemia. Abnormal CT scan of the abdomen with inflammatory response in the left side of colon without diverticulitis. The patient with urinary tract infection. PROCEDURE: Today's procedure part of investigation is colonoscopy. PREMEDICATION: Versed and Diprivan. SCOPE: Olympus folding colonoscope 10L video. REPORT: After putting the patient in left lateral position and application of lubricant to the rectal pouch and digital examination, scope was introduced. Thereafter, under direct visualization, advanced through the length of colon without difficulty. Evidence of diverticulosis of the left side of the colon was appreciated, nonspecific segmental short segment of the inflammatory response in the left colon seen. This is reactive, perhaps to constipation. There was no evidence of bleeding, no necrosis, no ulceration. Right colon approach. Air was gradually suctioned out. The patient was extubated, tolerated procedure well. IMPRESSION: Diverticulosis, nonspecific segmental colitis of sigmoid colon, status post biopsy. PLAN AND DISCUSSION: High fiber diet, no medical therapy is needed for the segmental colitis explained above. The patient is going to be on antibiotic for urinary tract infection. Would cover supportive management, otherwise. Thank you very much indeed. ARUNA KING MD CM:OPRECORD:OPERATIVE NOTE [phone] ROSETTA KING MD 03/04/17 1623 interface
--- NOTE | ~2017-03-02 | PR ---
[place], [place] PROGRESS NOTE [id number] #: [id number] ROOM: 408 DOCTOR: LALY SORIANO MD BIRTHDATE: [birth year] DOS: SUBJECTIVE: The patient is sitting in his bed right after he had x-ray of his neck. He is hungry and would like to eat his breakfast. He denies having any complaints, but did have some pain during the night and had to receive a Toradol injection. OBJECTIVE: VITAL SIGNS: Blood pressure is 150/80, pulse of 102, respirations 20, temperature 98.9. LUNGS: Diminished breath sounds. No wheezes, rales or rhonchi heard. HEART: Regular. ABDOMEN: Obese, tenderness in the left and right lower quadrants. EXTREMITIES: Without any edema. ASSESSMENT AND PLAN: 1. ESBL positive Escherichia coli, on IV Zosyn. 2. Segmental colitis. The patient has been placed on Asacol and Flagyl. We will avoid Toradol and Dilaudid for pain control has been ordered. We will avoid Toradol because of renal insufficiency. 3. Benign hypertension, controlled. 4. Neck pain. The patient is not having any complaints this morning, but did complain to Dr. Young yesterday . The patient had an x-ray of the neck ordered. I do not have the results yet. LALY SORIANO MD CM:PNTRANS 8 [phone] LALY SORIANO MD 03/05/17916 interface
--- NOTE | ~2017-03-02 | CON ---
[place], [place] REPORT OF CONSULTATION [id number] UN[facility] #: [id number] ROOM: 408 DOCTOR: FERNANDO GALARZAARUNA BIRTHDATE: [birth year] DOS: 03/04/2017 HISTORY OF PRESENT ILLNESS: An 86-year-old patient who has presented with chief complaint of left lower quadrant pain, epigastric distress. The patient has been admitted and underwent a panel of studies including CT scan of the abdomen and pelvis with suspected inflammatory response in the left colon without pain, diverticulitis. The patient's white blood cell initially was 12, H and H of 13 and 42, platelet was 260. Lactic acid was normal. INR was 1.0. Comprehensive metabolic panel: BUN and creatinine 26 and 1.4, GFR 54. Liver function test normal electrolyte balance. Urine culture greater than 100,000 gram-negative bacilli. CBC differential corrected to white blood cell of 8.5, H and H of 12 and 37. PAST MEDICAL HISTORY: Associated coronary artery disease, COPD, hypertension, renal insufficiency, hyperlipidemia, constipation, degenerative joint disease, BPH. FAMILY HISTORY: Noncontributory. SOCIAL HISTORY: Nonsmoker, nonalcohol consumer. PAST SURGICAL HISTORY: Cataract, cholecystectomy and CABG. FAMILY HISTORY: Noncontributory. ALLERGIES: SULFA, ALLOPURINOL, CEFAZOLIN AND CEFTRIAXONE. MEDICATIONS: List has been reviewed. REVIEW OF SYSTEMS: HEENT: Denies double vision, blurred vision. RESPIRATORY: Some shortness of breath. CARDIOVASCULAR: Denies chest pain. DIGESTIVE SYSTEM: Left lower quadrant pain, abdominal pain. PHYSICAL EXAMINATION: GENERAL: Alert and oriented. The patient with normal vital signs. HEENT: Head normocephalic, nontraumatic. Mouth and buccal mucosa benign. NECK: Supple, no thyromegaly, no cervical lymphadenopathy. CHEST: Symmetric anatomy, equal expansion. No wheeze, no rhonchi. HEART: Normal sinus rhythm, no gallop, no murmur. ABDOMEN: Soft. No hepato-organomegaly, nonspecific tender periodic spasm. EXTREMITIES: No cyanosis, no pedal edema. NEUROLOGIC: Alert, oriented to time, place, person. LABORATORY DATA: Reviewed, records reviewed. IMPRESSION: Abnormal CT scan of the abdomen, left-sided pain intermittently, urinary tract infection, ruling out ischemic colitis as a part of this presentation. [place], [place] REPORT OF CONSULTATION NAME: ED JENNINGS V UNIT #: [id number] ROOM: 408 DOCTOR: FERNANDO GALARZA,ARUNA BIRTHDATE: [birth year] PLAN AND DISCUSSION: As borderline anemia is noticed, we are concerned for combination of presentation of leukocytosis, left lower quadrant pain. PLAN AND CT scan findings. A colonoscopy, EGD is going to be organized today. ARUNA KING MD CM:CONSTR:REPORT OF CONSULTATION 1537 03/16/17 0735 interface
--- NOTE | ~2017-03-02 | CON ---
[place], [place] REPORT OF CONSULTATION [id number] UN[facility] #: [id number] ROOM: 408 DOCTOR: DAVID SAMAYOA MD BIRTHDATE: [birth year] DOS: 03/07/2017 Cardiology Consultation REASON FOR CONSULTATION: Nonsustained ventricular tachycardia. HISTORY OF PRESENT ILLNESS: The patient is an 86-year-old man who is known to have a history of coronary artery disease. He states he presented initially in 1988 with a syncopal episode. He was taken to the [facility] in [place], where he underwent a 3-vessel bypass surgery. Since then, he has followed closely with Dr. Wesley Young. The patient tells me that they do routine stress test on him and that his most recent stress test was "fine." Those records are not yet available to me. He presented to the hospital on 03/02/2017 with abdominal pain, nausea and a history of diverticulitis. He was felt to have acute diverticulitis and urinary tract infection. He was treated with antibiotics and is gradually improving. A colonoscopy showed diverticulosis with nonspecific segmental colitis of the sigmoid colon. The patient has been on antibiotics. Plans were being made for transfer to an extended care facility and a PICC line was inserted around 9:00 this morning. Either as the PICC line was being inserted or shortly after that, at 8:59 a.m. on 03/07/2017, the patient was noted to have several short runs of nonsustained wide complex tachycardia consistent with nonsustained ventricular tachycardia. The patient was totally asymptomatic with these. At the time of the event, his sodium was 145. His potassium was slightly low at 3.4. His magnesium was normal at 2.1. We were asked to assist in his assessment. His potassium was replaced with 40 mEq orally after the event was documented. PAST MEDICAL HISTORY: Includes: 1. Coronary artery disease. The patient is status post 3-vessel bypass at the [facility] in 1988. Details are not available. 2. Followup has been done through the offices of Dr. Young and Dr. Araujo. The patient states that he did have a stress test at that office recently, which was "fine." 3. History of chronic renal insufficiency. 4. History of hyperlipidemia. 5. History of benign essential hypertension. 6. Chronic constipation. 7. History of depression. 8. Gastroesophageal reflux disease with esophagitis. 9. History of benign prostatic hypertrophy and urinary retention. 10. History of abdominal aortic aneurysm resection at [facility] around 2008. MEDICATIONS: Prior to admission were aspirin 325 mg daily, vitamin D 2000 units daily, citalopram 20 mg daily, Uloric 40 mg daily, ciprofloxacin 500 mg b.i.d., finasteride 5 mg daily, metronidazole 500 mg t.i.d., pantoprazole 40 mg p.o. daily, MiraLax 17 g p.r.n. constipation, propranolol 80 mg daily, sennosides 8.6 [place], [place] REPORT OF CONSULTATION NAME: ED JENNINGS V UNIT #: [id number] ROOM: [facility] DOCTOR: DAVID SAMAYOA MD BIRTHDATE: [birth year] mg daily p.r.n. constipation, simvastatin 20 mg at bedtime and terazosin 2 mg at bedtime. ALLERGIES: The patient lists allergies to SULFA DRUGS, ALLOPURINOL, CEFAZOLIN and CEFTRIAXONE. REVIEW OF SYSTEMS: The patient denies diplopia or loss of vision. He denies focal weakness. He denies lightheadedness or syncope. He does not currently have nausea, but he did have nausea, vomiting and diarrhea earlier in his hospitalization. He denies fevers, chills or sweats. He denies any chest pain or palpitations and did not have any palpitations during the event earlier today. He denies significant abdominal pain, but he does note a lot of abdominal gurgling. He has had loose stools. He denies any blood in his stools and denies blood in his urine. He denies any peripheral edema. The remainder of the review of systems is negative except as noted above. SOCIAL HISTORY: The patient is . He was a smoker, but quit 50 years ago. He does not consume significant amounts of alcohol. PHYSICAL EXAMINATION: GENERAL: The patient is an elderly white male who is awake, alert and oriented. VITAL SIGNS: Pulse is 69 and regular, blood pressure is 168/76. He is afebrile. He weighs 65.9 kg and has a body mass index of 25. HEENT: Normocephalic and atraumatic. Extraocular muscles are intact. Sclerae are clear. Pupils are equal, round and react to light. The oral mucosa is moist. Tongue is midline. NECK: Supple. He has no jugular distention or hepatojugular reflux. Carotids are full and I heard no bruits. He had no neck or supraclavicular masses and no thyromegaly. LUNGS: Respirations are unlabored. His chest is clear to auscultation and percussion. He has no presacral edema or chest wall tenderness. CARDIOVASCULAR: His heart has a regular rhythm. He has a fourth heart sound, but no third heart sound. He has an occasional premature beat. He has no significant murmurs. He has no rubs. He has no precordial heave, lift or thrill. ABDOMEN: Soft and normally active without masses, organomegaly or bruits. EXTREMITIES: Showed no edema. Peripheral pulses were full in the left foot in the posterior tibial and dorsalis pedis pulses. The right foot has a diminished pulse at the posterior tibial, but the dorsalis pedis pulse is intact. SKIN: He has no obvious skin rashes. DIAGNOSTIC DATA: I reviewed his electrocardiogram after the event. 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 There are no acute ST changes. The QT interval is normal with a corrected QT of 446. IMPRESSION: 1. Nonsustained ventricular tachycardia occurring shortly after insertion of a PICC line. This is most likely due to stimulation of the ventricle by the tip of the PICC line. I have reviewed the patient's most recent chest x-ray after [place], [place] REPORT OF CONSULTATION [facility]: [id number] UNIT #: [id number] ROOM: [facility] DOCTOR: DAVID SAMAYOA MD BIRTHDATE: [birth year] the PICC line was inserted. The tip of the PICC line is in the right atrium, but does not appear to be close to the tricuspid valve at this time. 2. History of coronary artery disease status post bypass surgery in 1988. The patient shows no signs of acute ischemia at this time. 3. Acute diverticulitis. 4. Hypertension. 5. History of hyperlipidemia. PLAN: I agree with replacement of his potassium. I would continue his current dose of propranolol for now, although if ventricular arrhythmias continue to be a problem, we can increase that. I will be obtaining an echocardiogram to assess left ventricular function. We will continue to observe the patient in the hospital. Further recommendations will depend upon the results of the echo and his compliance monitor. I thank Dr. Araujo and Dr. Young for asking my advice regarding the patient's care. DAVID SAMAYOA MD CM:CONSTR:REPORT OF CONSULTATION 1208 03/08/17 0335 interface
--- NOTE | ~2017-03-02 | PR ---
[place], [place] PROGRESS NOTE [facility]: [facility]: [id number] UN[facility] #: [id number] ROOM: 408 DOCTOR: LALY SORIANO MD BIRTHDATE: [birth year] DOS: SUBJECTIVE: The patient is post-PICC line placement. During the PICC line, he had a 14-beat run of V-tach. OBJECTIVE: VITAL SIGNS: Blood pressure is 125/64, pulse of 72, respirations 20, temperature 97.9. LUNGS: Clear. HEART: Regular. ABDOMEN: Soft. EXTREMITIES: Without any edema. ASSESSMENT AND PLAN: 1. Urinary tract infection with multiple bacteria, Escherichia coli. 2. Enterococcus faecalis, adjustments in medications made. His abdominal pain is much improved. 3. Diarrhea with segmental colitis, on Asacol, IV Flagyl. Clostridium difficile titers are pending. He seems to be better with the Lomotil. Even though still has diarrhea, the number of episodes of have reduced. 4. Adult failure to thrive. The PICC line was placed for placement to [place]. 5. A 14-beat run of V-tach, most likely from the PICC line irritating the myocardium. Consultation with Dr. Pop has been obtained. 6. He was noted to be hypokalemic, supplementation was given. Magnesium level is pending. LALY SORIANO MD CM:PNTRANS LALY SORIANO MD 03/07/17 0933 interface
--- NOTE | ~2017-03-02 | DS ---
[place], [place] DISCHARGE SUMMARY NAME: ED JENNINGS [facility] #: [id number] UNIT #: [id number] ROOM: 408 DOCTOR: ROSETTA BESS MD BIRTHDATE: [birth year] DOS: 03/08/2017 DISCHARGE DIAGNOSES: 1. Resistant urinary tract infection with Escherichia coli, still requires 5 more days of meropenem. 2. Segmental colitis, started on treatment with sulfasalazine. 3. A 14-beat run of V-tach evaluated by Cardiology and considered to be secondary to PICC line, irritating the myocardium. 4. History of adult failure to thrive. 5. History of recurrent sigmoid diverticulitis. 6. Chronic stage 3 kidney disease. 7. Mixed hyperlipidemia. 8. Coronary artery disease of the [place] vessels. 9. Benign essential hypertension. 10. Chronic constipation. 11. Major depression, recurrent, mild. 12. Gastroesophageal reflux disease and esophagitis. 13. Chronic gouty arthritis. 14. Benign prostatic hypertrophy and urinary retention. HOSPITAL COURSE: The patient presented to the Emergency Department with complaints of left lower quadrant abdominal pains radiating into the suprapubic and right lower quadrant for 2 days prior to admission along with nausea, but no vomiting. The patient was admitted with urinary tract infection and at this time, she grew resistant organisms including two types of resistant Escherichia coli and Enterococcus faecalis infection. The patient was, at this time, kept on meropenem, started on meropenem for treatment. Earlier, the patient was on IV Zosyn, which covered the rest of the organisms. The patient's lower abdominal and pelvic pains and left lower quadrant pains have resolved with treatment. 1. Persistent recurrent diarrhea and abdominal pains and CAT scan showing colitis. The patient underwent colonoscopy, which showed segmental colitis and he was started on treatment with sulfasalazine and his symptoms have improved. 2. Chronic constipation, treated and controlled. The patient on senna and MiraLax. 3. Mixed hyperlipidemia treated with simvastatin. 4. Benign essential hypertension treated and controlled. The patient had episode of ventricular tachycardia. 14 beats drawn, which was thought to be secondary to PICC line placement irritating the myocardium. Patient has been asymptomatic on the cardiac cath lab technologist. Hypokalemia, treated with extra potassium supplements. LABORATORY DATA: C. diff toxin negative. Blood cultures negative. Urine culture results as mentioned above. DISCHARGE MANAGEMENT: The patient is going to halfway for continued antibiotics, finasteride 5 mg a day, propranolol 80 mg a day, folic acid 1 mg a day, lactobacillus t.i.d., Protonix 40 mg a day, citalopram 20 mg a day, [place], [place] DISCHARGE SUMMARY NAME: ED JENNINGS V UNIT #: [id number] ROOM: 408 DOCTOR: MARIA ALEJANDRA GALARZA,ROSETTA Aguilar BIRTHDATE: [birth year] finasteride 5 mg a day, terazosin 2 mg a day, simvastatin 20 mg a day, Protonix 40 mg a day, sennoside 8.6 mg daily, IV meropenem 1 gram every 8 hours for 5 days, then to be stopped, Flagyl 500 mg 3 times a day for 5 days then to be stopped, sulfasalazine 1000 mg b.i.d. ROSETTA BESS MD CM:JOSE [id number] ROSETTA BESS MD [id number]/08/[id number] interface
[~2017-03-02 18:09] MED LIST changes: -ASPIR-TRIN325 MG PO; +ASPIRIN325 M2 PO; +FLAGYL250 MG PO; +MACROBID100 M1 PO; +MIRALAX POWDER17 G1 PO
[2017-03-02 18:18] VITALS: BP 147/59
[2017-03-02 18:59] LABS: BASO % 0.2 % (0.0-1.0); EOS # 0.2 10*3/uL (0.0-0.4); EOS % 1.9 % (1.0-4.0); HEMATOCRIT 42.8 % (42.0-52.0); HEMOGLOBIN 13.8 g/dl (14.0-18.0); LYMPH # 0.9 10*3/uL (1.3-4.4); LYMPH % 7.1 % (27.0-41.0); MEAN CELL VOLUME 90.7 fl (80.0-94.0); MEAN CORPUSCULAR HGB 29.2 pg (27.0-31.0); MEAN CORPUSCULAR HGB CONC 32.2 g/dl (33.0-37.0); MEAN PLATELET VOLUME 9.4 fl (9.6-12.3); MONO # 0.3 10*3/uL (0.1-1.0); MONO % 2.7 % (3.0-9.0); NEUT # 11.3 10*3/uL (2.3-7.9); NEUT % 87.8 % (47.0-73.0); PLATELET COUNT AUTOMATED 264 10*3/uL (130-400); RED BLOOD COUNT 4.72 10*6/uL (4.50-5.90); RED CELL DISTRI WIDTH 14.6 % (0-14.5); WHITE BLOOD COUNT 12.8 10*3/uL (4.8-10.8)
--- NOTE | 2017-03-02 19:04 | NUR ---
PT REPORT RECEIVED. PT RESTING COMFORTABLY. REPORTS DECREASE IN PAIN AND NAUSEA. AWAITING CT RESULTS AMD FINAL DISPOSITION.
[2017-03-02 19:09] LABS: ACT PARTIAL THROMBO TIME 23.1 SECONDS (20.8-31.5)
[2017-03-02 19:14] LABS: ALBUMIN 3.6 gm/dl (3.1-4.5); CREATININE 1.49 mg/dL (0.70-1.30); POTASSIUM 4.7 mmol/L (3.5-5.1); TOTAL PROTEIN 7.8 gm/dL (6.4-8.2)
[2017-03-02 19:55] VITALS: BP 133/75
[2017-03-02 19:59] LABS: BILIRUBIN NEGATIVE (NEGATIVE); BLOOD TRACE-INTACT (NEGATIVE); CLARITY SL CLOUDY (CLEAR); COLOR YELLOW (YELLOW); GLUCOSE NEGATIVE (NEGATIVE); KETONE NEGATIVE (NEGATIVE); LEUKO ESTERASE 3+ (NEGATIVE); NITRITE POSITIVE (NEGATIVE); PH 5.5 (5.0-9.0); UROBILINOGEN 0.2 E.U./dl (0.2-1.0)
[2017-03-02 20:05] LABS: BACTERIA 3+; WBC 51-100 wbc/hpf (0-5)
[2017-03-02 20:54] VITALS: BP 140/62
--- NOTE | 2017-03-02 20:57 | NUR ---
PT STABLE AND READY FOR TRANSPORT TO INPATIENT ROOM. REPORT GIVEN TO TERRANCE SANCHES
[2017-03-02 21:15] VITALS: BP 160/70
--- NOTE | 2017-03-02 21:15 | NUR ---
A 86, admitted to , under the services of Dr. MARIA ALEJANDRA GALARZA,ROSETTA Aguilar with a diagnosis of UTI, SEPSIS, COLITIS, LEUKOCYTOSIS. Chief complaint is ABD PAIN. Patient arrived via stretcher from ER. Monitor applied. Initial assessment completed. Vital signs taken and recorded. DR. MARIA ALEJANDRA GALARZA,ROSETTA Aguilar notified of admission to the unit. Orders received. See assessment for past medical history, medications and allergies. Patient and/or family oriented to unit. [facility] visitation policy reviewed. Clothing/patient valuable form completed. LUNA NOVOA
[2017-03-02] MEDS ORDERED: MIRALAX119 GM PO (21:30)
--- NOTE | 2017-03-02 23:39 | NUR ---
PT C/O ABD PAIN MEDICATED WITH TYLENOL 1000MG PO. PT STATES DOES NOT THINK WILL BE EFFECTIVE FOR ABD PAIN BUT WILL ATTEMPT. ALSO STATES IF NOT EFFECTIVE WOULD REQUEST A SLEEPING PILL. WILL F/U TO SEE IF EFFECTIVE
[2017-03-03] VITALS: BP 141/50
--- NOTE | 2017-03-03 02:00 | NUR ---
PATIENT LYING IN BED, EYES CLOSED, SLEEPING. IV INTACT. NO PROBLEMS VOICED EARLIER.
--- NOTE | 2017-03-03 02:24 | NUR ---
24 HR chart check completed.
[2017-03-03 05:39] LABS: BILIRUBIN NEGATIVE (NEGATIVE); BLOOD TRACE-INTACT (NEGATIVE); CLARITY CLOUDY (CLEAR); COLOR YELLOW (YELLOW); GLUCOSE NEGATIVE (NEGATIVE); KETONE NEGATIVE (NEGATIVE); LEUKO ESTERASE 3+ (NEGATIVE); NITRITE POSITIVE (NEGATIVE); PH 5.5 (5.0-9.0); SPECIFIC GRAVITY 1.015 (1.005-1.030); UROBILINOGEN 0.2 E.U./dl (0.2-1.0)
[2017-03-03 05:54] LABS: WBC TNTC wbc/hpf (0-5)
[2017-03-03 05:56] LABS: BACTERIA 2+; RBC 21-30 rbc/hpf (0-2)
[2017-03-03 06:16] LABS: BASO % 0.5 % (0.0-1.0); EOS # 0.2 10*3/uL (0.0-0.4); EOS % 2.8 % (1.0-4.0); HEMATOCRIT 37.2 % (42.0-52.0); HEMOGLOBIN 12.1 g/dl (14.0-18.0); LYMPH # 1.2 10*3/uL (1.3-4.4); LYMPH % 14.2 % (27.0-41.0); MEAN CELL VOLUME 92.1 fl (80.0-94.0); MEAN CORPUSCULAR HGB CONC 32.5 g/dl (33.0-37.0); MEAN PLATELET VOLUME 9.3 fl (9.6-12.3); MONO # 0.7 10*3/uL (0.1-1.0); MONO % 7.9 % (3.0-9.0); NEUT # 6.3 10*3/uL (2.3-7.9); NEUT % 74.2 % (47.0-73.0); PLATELET COUNT AUTOMATED 215 10*3/uL (130-400); RED BLOOD COUNT 4.04 10*6/uL (4.50-5.90); RED CELL DISTRI WIDTH 14.8 % (0-14.5); WHITE BLOOD COUNT 8.5 10*3/uL (4.8-10.8)
--- NOTE | 2017-03-03 06:48 | NUR ---
INFECTIOUS DISEASE WAS NOTIFIED OF A CONSULT FROM DR. BESS FOR THIS PATIENT FOR LEUKOCYTOSIS.
[2017-03-03 07:45] VITALS: BP 137/70
--- NOTE | 2017-03-03 08:00 | NUR ---
Small Business Consultant in to talk to patient. Patient states lives at HOME with HIS . There are 8 steps in the home. Physician: DR BESS Pharmacy: [facility] IN [place] Home health services: NONE Patient's level of ADLs: MINIMAL ASSIST Patient has working utilities: YES DME: NONE Follow-up physician's appointment after d/c: WILL BE MADE AT SNF FACILITY Does patient want to access PORTAL?: Discharge plan . [facility] [address] DR WANTS SNF STAY FOR IV ATB. SPOKE WITH PT. HE WILL GO TO [facility]. DC WIRE LOOP MACHINE OPERATOR WILL MAKE REFERRAL. WILL NEED [address] BESS AWARE
--- NOTE | 2017-03-03 08:14 | NUR ---
ASSESSMENT COMPLETED AND DOCUMENTED. PT RESTING IN BED WAITING FOR BREAKFAST, NO COMPLAINTS OF PAIN OR DISCOMFORT. VICKY GRAHAM SPNJDRCKourtney
--- NOTE | 2017-03-03 10:15 | NUR ---
PT LAYING IN BED WATCHING TV, NO COMPLAINTS AT THIS TIME VICKY STINSONNJDRCKourtney
--- NOTE | 2017-03-03 10:29 | NUR ---
PHYSICAL THERAPY Physical Therapy Evaluation completed this date. See eval note for further details. Based on the I demonstrated throughout assessment, no ongoing PT recommended at [place] [id number] based on chart review and PT eval. Lana See, PT
[2017-03-03 12:40] VITALS: BP 156/61
--- NOTE | 2017-03-03 12:54 | NUR ---
PT IS LAYING IN BED WATCHING TV, NO COMPLAINTS OF PAIN OR DISCOMFORT AT THIS TIME VICKY STINSONNJDRC
--- NOTE | 2017-03-03 13:41 | NUR ---
PT IS RESTING IN BED. NO COMPLAINTS AT THIS TIME.
--- NOTE | 2017-03-03 15:23 | NUR ---
Spoke with Lonnie in pharmacy regarding Uloric, states they do not carry this med and pt may bring it from home. States he cannot verify the med in the system until he has the med in his hand. Pt does not currently have the med.
[2017-03-03 16:00] VITALS: BP 159/55
--- NOTE | 2017-03-03 17:12 | NUR ---
Dr. Young in and examined pt.
--- NOTE | 2017-03-03 17:54 | NUR ---
DR. KING NOTIFIED OF CONSULT. NEW ORDERS RECEIVED.
--- NOTE | 2017-03-03 19:56 | NUR ---
ULORIC ORDERED BUT NOT VERIFIED. SPOKE TO LIBRA IN PHARMACY, MED NOT AVAILABLE BUT PATIENT CAN BRING FROM HOME
[2017-03-03 20:00] VITALS: BP 158/56
--- NOTE | 2017-03-03 20:30 | NUR ---
RESTING IN BED WATCHING TV. NO ACUTE DISTRESS NOTED. RESPIRATIONS EASY. LUNGS DIMINISHED. PULSE OX 98% RA. INFREQUENT LOOSE COUGH. DRANK ALL MIRALAX COLO PREP AT THIS TIME, NO BM'S. C/O LOWER ABD PAIN, DENIES AT PRESENT. CALL LIGHT WITHIN REACH. NO VOICED COMPLAINTS
--- NOTE | 2017-03-03 21:35 | NUR ---
IV started left forearm with #22 angiocath after 1 attempts. The IV site was prepped with Chloraprep. Heparin lock attached. Sterile dressing applied. Patient tolerated precedure well. Procedure performed according to [facility] policy & procedure. NURIA LEE RN
--- NOTE | 2017-03-03 23:00 | NUR ---
PATIENT CONTINUES TO PREP FOR COLO. MIRALAX AND DULCOLAX TAKEN WITHOUT DIFFICULTY. AWARE OF NPO STATUS AFTER MIDNIGHT FOR TESTING IN AM
[2017-03-04] VITALS (10 sets, daily range): BP systolic 151–196; BP diastolic 64–96
--- NOTE | 2017-03-04 00:30 | NUR ---
RESTING WITH EYES CLOSED. RESPIRATIONS EASY. VSS. CALL LIGHT WITHIN REACH. NPO FOR TESTING IN AM
--- NOTE | 2017-03-04 03:00 | NUR ---
CONTINUES TO SLEEP
--- NOTE | 2017-03-04 05:20 | NUR ---
PATIENT CLAIMS NO BM THROUGHOUT NIGHT DESPITE COLO PREP. ADMITS TOP VOMITTING BUT DID NOT NOTIFY ANYONE. WHEN ROUNDING, PATIENT HAD BEEN SLEEPING
--- NOTE | 2017-03-04 06:05 | NUR ---
FLEETS ENEMA GIVEN, PATIENT TOLERATED WELL. SMALL FORMED BM
[2017-03-04 07:11] LABS: BASO % 0.2 % (0.0-1.0); EOS # 0.1 10*3/uL (0.0-0.4); EOS % 1.2 % (1.0-4.0); HEMATOCRIT 37.6 % (42.0-52.0); HEMOGLOBIN 12.1 g/dl (14.0-18.0); LYMPH # 1.2 10*3/uL (1.3-4.4); LYMPH % 13.3 % (27.0-41.0); MEAN CELL VOLUME 90.8 fl (80.0-94.0); MEAN CORPUSCULAR HGB 29.2 pg (27.0-31.0); MEAN CORPUSCULAR HGB CONC 32.2 g/dl (33.0-37.0); MEAN PLATELET VOLUME 9.8 fl (9.6-12.3); MONO # 0.6 10*3/uL (0.1-1.0); MONO % 6.4 % (3.0-9.0); NEUT # 7.1 10*3/uL (2.3-7.9); NEUT % 78.5 % (47.0-73.0); PLATELET COUNT AUTOMATED 231 10*3/uL (130-400); RED BLOOD COUNT 4.14 10*6/uL (4.50-5.90); RED CELL DISTRI WIDTH 14.8 % (0-14.5); WHITE BLOOD COUNT 9.1 10*3/uL (4.8-10.8)
--- NOTE | 2017-03-04 07:44 | NUR ---
Patient referred to [facility] for IV ATB, waiting on acceptance.
--- NOTE | 2017-03-04 08:15 | NUR ---
PT REFUSING ENEMAS AT THIS TIME BECAUSE OF INCREASED ABDOMINAL PAIN. ATTEMPTED TO PHONE DR. KING WITH NO ANSWER.
--- NOTE | 2017-03-04 08:20 | NUR ---
SPOKE WITH DR. KING REGARDING PATIENT'S ABDOMINAL PAIN AND THAT HE IS REFUSING ANY FURTHER ENEMAS AT THIS TIME. DR. KING STATED TO "LEAVE THE PATIENT ALONE AND THEN ADDED TO GIVE HIM A DULCOLAX SUPPOSITORY."
--- NOTE | 2017-03-04 11:19 | NUR ---
patient has been accepted to [facility] but requires a 3 night stay. Patient can go tomorrow 03/05/17 if medically stable for discharge.
[2017-03-04] MEDS ORDERED: CIPRO500 MG PO (16:39)
[2017-03-04] MEDS ORDERED: FLAGYL500 MG PO (16:39)
--- NOTE | 2017-03-04 17:30 | NUR ---
PT C/O ABDOMINAL PAIN. RATES PAIN 01/25. MEDICATED AT THIS TIME WITH PRN TORADOL PER ORDER FROM DR. KING.
--- NOTE | 2017-03-04 20:00 | NUR ---
RESTING IN BED; AWAKE BUT RESTING WITH EYES CLOSED. RESPIRATIONS EASY. LUNGS DIMINISHED, CLEAR. PULSE OX 97% RA. NON-PRODUCTIVE COUGH NOTED. ABD SOFT WITH HYPOACTIVE BOWEL SOUNDS, C/O DIARRHEA D/T EARLIER COLO PREP. CALL LIGHT WITHIN REACH.
--- NOTE | 2017-03-04 23:19 | NUR ---
C/O RECURRENT NAUSEA, MEDICATED WITH ZOFRAN IV PER PRN ORDER. CALL LIGHT WITHIN REACH. WILL MONITOR FOR EFFECTIVENESS
[2017-03-05] VITALS: BP 150/80
--- NOTE | 2017-03-05 00:15 | NUR ---
EARLIER MEDS APPEAR EFFECTIVE. RESTING WITH EYES CLOSED. RESPIRATIONS EASY. VSS. CALL LIGHT WITHIN REACH.
--- NOTE | 2017-03-05 04:12 | NUR ---
c/o back and abd pain rating a 5, medicated with toradol per prn order. call light within reach. will monitor for effectiveness
--- NOTE | 2017-03-05 05:30 | NUR ---
states relief from earlier meds. resting in bed. respirations easy. call light within reach. no voiced complaints
[2017-03-05 06:22] LABS: BASO % 0.4 % (0.0-1.0); EOS % 0.4 % (1.0-4.0); HEMATOCRIT 34.5 % (42.0-52.0); HEMOGLOBIN 11.3 g/dl (14.0-18.0); LYMPH # 1.5 10*3/uL (1.3-4.4); LYMPH % 21.2 % (27.0-41.0); MEAN CELL VOLUME 90.6 fl (80.0-94.0); MEAN CORPUSCULAR HGB 29.7 pg (27.0-31.0); MEAN CORPUSCULAR HGB CONC 32.8 g/dl (33.0-37.0); MONO # 0.6 10*3/uL (0.1-1.0); MONO % 8.7 % (3.0-9.0); NEUT # 4.7 10*3/uL (2.3-7.9); NEUT % 68.9 % (47.0-73.0); PLATELET COUNT AUTOMATED 235 10*3/uL (130-400); RED BLOOD COUNT 3.81 10*6/uL (4.50-5.90); WHITE BLOOD COUNT 6.9 10*3/uL (4.8-10.8)
--- NOTE | 2017-03-05 07:45 | NUR ---
DR KING CALLED IN REGARDING PT, UPDATED ON PT'S DIARRHEA. ORDERS RECEIVED.
--- NOTE | 2017-03-05 07:53 | NUR ---
PT DOWN FOR X-RAY AT THIS TIME.
[2017-03-05 08:00] VITALS: BP 160/64
--- NOTE | 2017-03-05 08:10 | NUR ---
PT BACK FROM X-RAY AT THIS TIME.
--- NOTE | 2017-03-05 08:12 | NUR ---
DR SORIANO IN TO SEE PT AT THIS TIME.
--- NOTE | 2017-03-05 11:23 | NUR ---
IV IN LEFT FOREARM, NEW YSABEL SITE ESTABLISHED IN RIGHT FOREARM #22G. PT TOLERATED WELL.
[2017-03-05 12:00] VITALS: BP 174/70
[2017-03-05 16:00] VITALS: BP 138/55
--- NOTE | 2017-03-05 17:30 | NUR ---
PT RESTING IN BED, DENIES ANY COMPLAINTS AT THIS TIME. CALL LIGHT WITHIN REACH.
[2017-03-05 20:00] VITALS: BP 172/68; BP 176/57
--- NOTE | 2017-03-05 20:00 | NUR ---
RESTING IN BED WITH NO ACUTE DISTRESS NOTED. RESPIRATIONS EASY. LUNGS DIMINISHED, CLEAR. PULSE OX 94% RA. NON-PROD COUGH NOTED. ABD SOFT WITH HYPOACTIVE BOWEL SOUNDS, C/O DIARRHEA. DENIES ABD PAIN AT PRESENT. CALL LIGHT WITHIN REACH. NO VOICED COMPLAINTS
--- NOTE | 2017-03-05 21:50 | NUR ---
MEDICATED WITH DILAUDID IV PER PRN ORDER FOR C/O ABD PAIN RATING A 5. ALSO RECEIVED ZOFRAN IV FOR NAUSEA. CALL LIGHT WITHIN REACH. WILL MONITOR FOR EFFECTIVENESS
--- NOTE | 2017-03-05 23:00 | NUR ---
EARLIER MEDS APPEAR EFFECTIVE. SLEEPING. RESPIRATIONS EASY. CALL LIGHT WITHIN REACH
[2017-03-06] VITALS: BP 154/64
--- NOTE | 2017-03-06 00:30 | NUR ---
SLEEPING. RESPIRATIONS EASY. VSS. CALL LIGHT WITHIN REACH
--- NOTE | 2017-03-06 03:00 | NUR ---
CONTINUES TO SLEEP WITH NO DISTRESS NOTED. RESPIRATIONS EASY. CALL LIGHT WITHIN REACH
--- NOTE | 2017-03-06 06:00 | NUR ---
RESTED THROUGHOUT NIGHT WITH NO DISTRESS NOTED. RESPIRATIONS EASY. CONTINUES TO HAVE DIARRHEA. CALL LIGHT WITHIN REACH.
[2017-03-06 08:00] VITALS: BP 178/72
--- NOTE | 2017-03-06 08:50 | NUR ---
DILAUDID 0.5MG IV AND ZOFRAN 4MG IV GIVEN PER PATIENT REQUEST FOR ABDOMINAL PAIN RATING AN 8/10 AND NAUSEA.
--- NOTE | 2017-03-06 09:50 | NUR ---
PATIENT SLEEPING. NO SIGNS OF DISTRESS. DILAUDID AND ZOFRAN EFFETIVE.
[2017-03-06 12:00] VITALS: BP 150/53
[2017-03-06 16:00] VITALS: BP 153/64
[2017-03-06 20:00] VITALS: BP 149/66
--- NOTE | 2017-03-06 23:01 | NUR ---
Medicated with Dilaudid IV prn for abd. pain and Zofran IV prn for nausea. Will monitor effectiveness. Call light within reach.
[2017-03-07] VITALS: BP 125/64
--- NOTE | 2017-03-07 00:05 | NUR ---
Patient resting quietly in bed with eyes closed. Dilaudid and Zofran effective. Will continue to monitor. Call light within reach.
--- NOTE | 2017-03-07 00:59 | NUR ---
24 HR chart check completed.
[2017-03-07 07:26] LABS: BASO # 0.1 10*3/uL (0.0-0.1); BASO % 0.8 % (0.0-1.0); EOS # 0.3 10*3/uL (0.0-0.4); EOS % 4.2 % (1.0-4.0); HEMATOCRIT 36.2 % (42.0-52.0); HEMOGLOBIN 11.6 g/dl (14.0-18.0); LYMPH % 15.8 % (27.0-41.0); MEAN CELL VOLUME 90.7 fl (80.0-94.0); MEAN CORPUSCULAR HGB 29.1 pg (27.0-31.0); MEAN PLATELET VOLUME 9.6 fl (9.6-12.3); MONO # 0.5 10*3/uL (0.1-1.0); MONO % 7.6 % (3.0-9.0); NEUT # 4.6 10*3/uL (2.3-7.9); PLATELET COUNT AUTOMATED 212 10*3/uL (130-400); RED BLOOD COUNT 3.99 10*6/uL (4.50-5.90); RED CELL DISTRI WIDTH 14.6 % (0-14.5); WHITE BLOOD COUNT 6.4 10*3/uL (4.8-10.8)
[2017-03-07 07:42] LABS: BUN 18 mg/dl (7-24); CHLORIDE 111 mmol/L (98-107); CREATININE 1.31 mg/dL (0.70-1.30); POTASSIUM 3.4 mmol/L (3.5-5.1); SODIUM 145 mmol/L (136-145)
--- NOTE | 2017-03-07 09:00 | NUR ---
PT HAD A 14 RUN BEAT OF V-TACH. PT ASYMPTOMATIC, STABLE. DR. SORIANO ON FLOOR AT THIS TIME, WAS GIVEN THE RYTHUM STRIP, PT EVALUATED AT BEDSIDE. NEW ORDERS GIVEN. HEIDI FOWLER TO MONITOR.
--- NOTE | 2017-03-07 09:19 | NUR ---
DR. SAMAYOA NOTIFIED OF CONSULT.
[2017-03-07 09:33] VITALS: BP 138/76; BP 168/76
[2017-03-07 12:00] VITALS: BP 133/50
[2017-03-07 16:00] VITALS: BP 155/67
[2017-03-07 20:00] VITALS: BP 146/52
[2017-03-08] VITALS: BP 170/60
--- NOTE | 2017-03-08 01:27 | NUR ---
PATIENT RESTING IN BED WITH NO S/S OF DISTRESS. RESPS EASY AND REGULAR. BED IN LOWEST POSITION, CALL LIGHT IN REACH
--- NOTE | 2017-03-08 01:59 | NUR ---
24 HR chart check completed.
[2017-03-08 06:38] LABS: BUN 16 mg/dl (7-24); CHLORIDE 113 mmol/L (98-107); CREATININE 1.06 mg/dL (0.70-1.30); POTASSIUM 3.4 mmol/L (3.5-5.1); SODIUM 146 mmol/L (136-145)
[2017-03-08 08:00] VITALS: BP 164/73
[2017-03-08 12:00] VITALS: BP 150/61
--- NOTE | 2017-03-08 13:39 | NUR ---
Faxed updates and progress notes to [facility], keke stated they are ok with accepting patient and he can come today if ready for discharge.
[2017-03-08 16:00] VITALS: BP 158/79
[2017-03-08] MEDS ORDERED: SULFASALAZINE500 M1 PO (19:08)
--- NOTE | 2017-03-08 19:38 | NUR ---
PATIENT RESTING IN BED WATCHING TV. NO NEEDS AT THIS TIME. CONCERNED WITH BEING DISCHARGED TO SNF AT THIS TIME OF NIGHT. DR BESS AWARE OF PATIENT REQUESTING TO SEE HIM AGAIN. STATES HE WILL SEE HIM. IV INFUSING WITHOUT DIFFICULTY. BED IN LOWEST POSITION, CALL LIGHT IN REACH
--- NOTE | 2017-03-08 19:47 | NUR ---
DR BESS AT BEDSIDE
[2017-03-08 20:00] VITALS: BP 128/61
--- NOTE | 2017-03-08 20:03 | NUR ---
REPORT GIVEN TO DYLAN AT [facility]. ALL QUESTIONS ANSWERED
--- NOTE | 2017-03-08 21:08 | NUR ---
PATIENT TRANSPORTED TO [facility] WITH [facility]. BELONGINGS INTACT. NO S/S OF DISTRESS.
== END 2017-03-08 21:08 | disposition other institution (70) | DRG 872 ==
LOC: ED 18:09 → 4E 20:40 → EDHOLD 20:40 → 4E 20:48
PROVIDERS: Emergency Medicine; Internal Medicine; Internal Medicine Cardiovascular Disease; ADMIT Internal Medicine
PROC: 0DBN8ZX Excision of Sigmoid Colon, Via Natural or Artificial Opening Endoscopic, Diagnostic (ICD-10-PCS; principal; 2017-03-04)
PROC: 02HV33Z Insertion of Infusion Device into Superior Vena Cava, Percutaneous Approach (ICD-10-PCS; 2017-03-07)
DX: A41.9 Sepsis, unspecified organism (principal); I47.2 Ventricular tachycardia; K50.10 Crohn's disease of large intestine without complications; N18.3 Chronic kidney disease, stage 3 (moderate); F33.0 Major depressive disorder, recurrent, mild; K57.32 Diverticulitis of large intestine without perforation or abscess without bleeding; N39.0 Urinary tract infection, site not specified; I12.9 Hypertensive chronic kidney disease with stage 1 through stage 4 chronic kidney disease, or unspecified chronic kidney disease; B96.20 Unspecified Escherichia coli [E. coli] as the cause of diseases classified elsewhere; M19.90 Unspecified osteoarthritis, unspecified site; I25.10 Atherosclerotic heart disease of native coronary artery without angina pectoris; K59.09 Other constipation; E78.2 Mixed hyperlipidemia; B95.2 Enterococcus as the cause of diseases classified elsewhere; N40.1 Benign prostatic hyperplasia with lower urinary tract symptoms; M1A.9XX0 Chronic gout, unspecified, without tophus (tophi); R62.7 Adult failure to thrive; K21.0 Gastro-esophageal reflux disease with esophagitis; E87.6 Hypokalemia; Z16.12 Extended spectrum beta lactamase (ESBL) resistance; M54.2 Cervicalgia; Z79.82 Long term (current) use of aspirin; Z79.899 Other long term (current) drug therapy; Z95.1 Presence of aortocoronary bypass graft; Z87.891 Personal history of nicotine dependence; Z98.49 Cataract extraction status, unspecified eye; Z88.2 Allergy status to sulfonamides; Z88.8 Allergy status to other drugs, medicaments and biological substances

== ENCOUNTER 2017-04-22 10:12 | Emergency (ER) | payer MEDICARE, OTHER ==
[~2017-04-22] VITALS: Wt 65.8 kg
[~2017-04-22 10:12] MED LIST changes: +CIPRO500 MG PO; +MIRALAX119 GM PO; +SULFASALAZINE500 M1 PO
[2017-04-22 10:58] LABS: HEMATOCRIT 39.9 % (42.0-52.0); HEMOGLOBIN 12.7 g/dl (14.0-18.0); MEAN CELL VOLUME 91.3 fl (80.0-94.0); MEAN CORPUSCULAR HGB 29.1 pg (27.0-31.0); MEAN CORPUSCULAR HGB CONC 31.8 g/dl (33.0-37.0); MEAN PLATELET VOLUME 10.8 fl (9.6-12.3); PLATELET COUNT AUTOMATED 124 10*3/uL (130-400); RED BLOOD COUNT 4.37 10*6/uL (4.50-5.90); RED CELL DISTRI WIDTH 16.1 % (0-14.5); WHITE BLOOD COUNT 10.8 10*3/uL (4.8-10.8)
[2017-04-22 11:13] LABS: CREATININE 4.98 mg/dL (0.70-1.30); POTASSIUM 4.2 mmol/L (3.5-5.1); TOTAL PROTEIN 7.1 gm/dL (6.4-8.2)
[2017-04-22 11:16] LABS: PLATELET SUFFICIENCY LOW (NORMAL); TOTAL CELLS COUNTED 100 #CELLS
[2017-04-22 11:20] LABS: TROPONIN I 0.061 ng/ml (<0.045)
[2017-04-22 18:36] LABS: BILIRUBIN 2+ (NEGATIVE); BLOOD 2+ (NEGATIVE); CLARITY CLOUDY (CLEAR); COLOR YELLOW (YELLOW); GLUCOSE NEGATIVE (NEGATIVE); KETONE TRACE (NEGATIVE); LEUKO ESTERASE 3+ (NEGATIVE); NITRITE NEGATIVE (NEGATIVE); PH 6.5 (5.0-9.0)
[2017-04-22 18:45] LABS: WBC TNTC wbc/hpf (0-5)
[2017-04-22 19:09] VITALS: BP 108/57
== END 2017-04-22 21:06 | disposition short-term general hospital (02) ==
LOC: ED 10:12
PROVIDERS: Nurse Practitioner Family
DX: A41.9 Sepsis, unspecified organism (principal); N39.0 Urinary tract infection, site not specified; R65.20 Severe sepsis without septic shock; N17.9 Acute kidney failure, unspecified; K52.9 Noninfective gastroenteritis and colitis, unspecified; Z88.1 Allergy status to other antibiotic agents; Z88.2 Allergy status to sulfonamides; Z79.899 Other long term (current) drug therapy; Z79.82 Long term (current) use of aspirin

== ENCOUNTER 2018-08-03 10:57 | Emergency (ER) | payer MEDICARE, OTHER ==
[~2018-08-03] VITALS: Ht 170.1 cm; Wt 78.0 kg
[~2018-08-03 10:57] MED LIST changes: +ASPIRIN ADULT L81 M2 PO; +HYDRALAZINE HYD50 MG PO; +TENORMIN25 MG PO
[2018-08-03 11:08] VITALS: BP 164/83
[2018-08-03 11:22] LABS: BASO # 0.1 10*3/uL (0.0-0.1); BASO % 0.7 % (0.0-1.0); EOS # 0.5 10*3/uL (0.0-0.4); HEMATOCRIT 41.1 % (42.0-52.0); HEMOGLOBIN 13.3 g/dl (14.0-18.0); LYMPH # 1.6 10*3/uL (1.3-4.4); LYMPH % 15.5 % (27.0-41.0); MEAN CELL VOLUME 90.3 fl (80.0-94.0); MEAN CORPUSCULAR HGB 29.2 pg (27.0-31.0); MEAN CORPUSCULAR HGB CONC 32.4 g/dl (33.0-37.0); MEAN PLATELET VOLUME 9.7 fl (9.6-12.3); MONO # 0.5 10*3/uL (0.1-1.0); MONO % 5.2 % (3.0-9.0); NEUT # 7.7 10*3/uL (2.3-7.9); NEUT % 73.2 % (47.0-73.0); PLATELET COUNT AUTOMATED 210 10*3/uL (130-400); RED BLOOD COUNT 4.55 10*6/uL (4.50-5.90); RED CELL DISTRI WIDTH 15.3 % (0-14.5); WHITE BLOOD COUNT 10.5 10*3/uL (4.8-10.8)
[2018-08-03 11:35] LABS: CREATININE 1.72 mg/dL (0.70-1.30); POTASSIUM 4.3 mmol/L (3.5-5.1); URIC ACID 8.8 mg/dL (3.5-7.2)
== END 2018-08-03 13:40 | disposition home or self-care (01) ==
LOC: ED 10:57
PROVIDERS: Emergency Medicine
DX: M25.472 Effusion, left ankle (principal); M19.90 Unspecified osteoarthritis, unspecified site; I25.10 Atherosclerotic heart disease of native coronary artery without angina pectoris; K21.9 Gastro-esophageal reflux disease without esophagitis; E78.5 Hyperlipidemia, unspecified; I12.9 Hypertensive chronic kidney disease with stage 1 through stage 4 chronic kidney disease, or unspecified chronic kidney disease; N18.9 Chronic kidney disease, unspecified; M10.9 Gout, unspecified; Z95.1 Presence of aortocoronary bypass graft; Z90.49 Acquired absence of other specified parts of digestive tract; Z98.84 Bariatric surgery status; Z79.899 Other long term (current) drug therapy; Z79.82 Long term (current) use of aspirin; Z88.2 Allergy status to sulfonamides; Z88.1 Allergy status to other antibiotic agents

== ENCOUNTER 2018-08-04 23:24 | Emergency (ER) | payer MEDICARE, OTHER ==
[~2018-08-04] VITALS: Ht 165.1 cm; Wt 72.6 kg
[2018-08-04 23:26] VITALS: BP 172/95
[2018-08-05 01:06] LABS: BASO # 0.1 10*3/uL (0.0-0.1); BASO % 0.7 % (0.0-1.0); EOS # 0.5 10*3/uL (0.0-0.4); EOS % 4.2 % (1.0-4.0); HEMATOCRIT 41.6 % (42.0-52.0); HEMOGLOBIN 13.3 g/dl (14.0-18.0); LYMPH # 2.2 10*3/uL (1.3-4.4); LYMPH % 18.8 % (27.0-41.0); MEAN CELL VOLUME 90.8 fl (80.0-94.0); MEAN PLATELET VOLUME 10.1 fl (9.6-12.3); MONO # 0.7 10*3/uL (0.1-1.0); MONO % 5.7 % (3.0-9.0); NEUT # 8.2 10*3/uL (2.3-7.9); NEUT % 70.3 % (47.0-73.0); PLATELET COUNT AUTOMATED 245 10*3/uL (130-400); RED BLOOD COUNT 4.58 10*6/uL (4.50-5.90); RED CELL DISTRI WIDTH 15.4 % (0-14.5); WHITE BLOOD COUNT 11.7 10*3/uL (4.8-10.8)
[2018-08-05] MEDS ORDERED: ULORIC40 MG PO (01:23)
[2018-08-05 01:28] LABS: CREATININE 1.8 mg/dL (0.70-1.30); POTASSIUM 3.9 mmol/L (3.5-5.1); URIC ACID 8.9 mg/dL (3.5-7.2)
== END 2018-08-05 02:00 | disposition home or self-care (01) ==
LOC: ED 23:24
PROVIDERS: Emergency Medicine Emergency Medical Services
DX: M10.072 Idiopathic gout, left ankle and foot (principal); I25.10 Atherosclerotic heart disease of native coronary artery without angina pectoris; E78.5 Hyperlipidemia, unspecified; I12.9 Hypertensive chronic kidney disease with stage 1 through stage 4 chronic kidney disease, or unspecified chronic kidney disease; N18.9 Chronic kidney disease, unspecified; Z88.2 Allergy status to sulfonamides; Z88.8 Allergy status to other drugs, medicaments and biological substances; Z88.1 Allergy status to other antibiotic agents; Z79.899 Other long term (current) drug therapy; Z79.82 Long term (current) use of aspirin; Z90.49 Acquired absence of other specified parts of digestive tract

== ENCOUNTER → 2019-04-24 | Outpatient (CLI) | payer MEDICARE, OTHER ==
[2019-04-24 13:52] LABS: BASO % 0.6 % (0.0-1.0); EOS # 0.2 10*3/uL (0.0-0.4); EOS % 2.8 % (1.0-4.0); HEMATOCRIT 44.9 % (42.0-52.0); HEMOGLOBIN 14.4 g/dl (14.0-18.0); LYMPH # 1.4 10*3/uL (1.3-4.4); MEAN CELL VOLUME 87.9 fl (80.0-94.0); MEAN CORPUSCULAR HGB 28.2 pg (27.0-31.0); MEAN CORPUSCULAR HGB CONC 32.1 g/dl (33.0-37.0); MEAN PLATELET VOLUME 9.8 fl (9.6-12.3); MONO # 0.4 10*3/uL (0.1-1.0); MONO % 5.7 % (3.0-9.0); NEUT # 4.8 10*3/uL (2.3-7.9); PLATELET COUNT AUTOMATED 178 10*3/uL (130-400); RED BLOOD COUNT 5.11 10*6/uL (4.50-5.90); RED CELL DISTRI WIDTH 14.6 % (0-14.5); WHITE BLOOD COUNT 6.8 10*3/uL (4.8-10.8)
[2019-04-24 14:21] LABS: CREATININE 2.04 mg/dL (0.70-1.30); POTASSIUM 4.4 mmol/L (3.5-5.1); TOTAL PROTEIN 7.7 gm/dL (6.4-8.2)
[2019-04-24 14:27] LABS: FREE T4 1.08 ng/dl (0.76-1.46); THYROID STIM HORMONE (HS) 2.6 uIU/ml (0.358-4.75)
== END | disposition home or self-care (01) ==
LOC: LAB 13:28
PROVIDERS: Internal Medicine
DX: I10 Essential (primary) hypertension (principal); E78.2 Mixed hyperlipidemia; N40.1 Benign prostatic hyperplasia with lower urinary tract symptoms; E55.9 Vitamin D deficiency, unspecified

== ENCOUNTER → 2019-05-14 | Outpatient (CLI) | payer MEDICARE, OTHER ==
[2019-05-14 13:52] LABS: BASO % 0.6 % (0.0-1.0); EOS # 0.2 10*3/uL (0.0-0.4); EOS % 3.1 % (1.0-4.0); HEMATOCRIT 46.4 % (42.0-52.0); LYMPH # 1.3 10*3/uL (1.3-4.4); MEAN CELL VOLUME 87.5 fl (80.0-94.0); MEAN CORPUSCULAR HGB 28.3 pg (27.0-31.0); MEAN CORPUSCULAR HGB CONC 32.3 g/dl (33.0-37.0); MEAN PLATELET VOLUME 9.8 fl (9.6-12.3); MONO # 0.3 10*3/uL (0.1-1.0); MONO % 4.9 % (3.0-9.0); NEUT # 4.9 10*3/uL (2.3-7.9); NEUT % 72.3 % (47.0-73.0); PLATELET COUNT AUTOMATED 180 10*3/uL (130-400); RED CELL DISTRI WIDTH 14.8 % (0-14.5); WHITE BLOOD COUNT 6.7 10*3/uL (4.8-10.8)
[2019-05-14 14:31] LABS: ALBUMIN 3.9 gm/dl (3.1-4.5); CREATININE 1.85 mg/dL (0.70-1.30); POTASSIUM 4.1 mmol/L (3.5-5.1); TOTAL PROTEIN 7.7 gm/dL (6.4-8.2)
[2019-05-15 13:39] LABS: BILIRUBIN NEGATIVE (NEGATIVE); BLOOD 1+ (NEGATIVE); CLARITY CLOUDY (CLEAR); COLOR YELLOW (YELLOW); GLUCOSE NEGATIVE (NEGATIVE); KETONE NEGATIVE (NEGATIVE)
[2019-05-15 13:40] LABS: LEUKO ESTERASE 2+ (NEGATIVE); NITRITE NEGATIVE (NEGATIVE); PH 5.5 (5.0-9.0); UROBILINOGEN 0.2 E.U./dl (0.2-1.0)
[2019-05-15 13:41] LABS: BACTERIA 3+; WBC TNTC wbc/hpf (0-5)
[2019-05-16 11:11] LABS: TESTOSTERONE FREE, (DIRECT) 6.5 pg/mL (6.6-18.1)
== END | disposition home or self-care (01) ==
LOC: LAB 03:20 → CT 14:00
PROVIDERS: Nurse Practitioner Family
DX: Z12.5 Encounter for screening for malignant neoplasm of prostate (principal); I10 Essential (primary) hypertension; R53.83 Other fatigue; D40.0 Neoplasm of uncertain behavior of prostate; K57.30 Diverticulosis of large intestine without perforation or abscess without bleeding; K40.20 Bilateral inguinal hernia, without obstruction or gangrene, not specified as recurrent; N40.0 Benign prostatic hyperplasia without lower urinary tract symptoms

== ENCOUNTER 2019-09-26 10:18 | Inpatient (IN) | payer MEDICARE, OTHER ==
[~2019-09-26] VITALS: Ht 165.1 cm; Wt 50.8 kg
[2019-09-26 10:27] VITALS: BP 174/93
[2019-09-26 11:12] LABS: BASO % 0.3 % (0.0-1.0); EOS # 0.1 10*3/uL (0.0-0.4); EOS % 1.4 % (1.0-4.0); HEMATOCRIT 38.3 % (42.0-52.0); LYMPH # 0.7 10*3/uL (1.3-4.4); MEAN CELL VOLUME 92.1 fl (80.0-94.0); MEAN CORPUSCULAR HGB 29.1 pg (27.0-31.0); MEAN CORPUSCULAR HGB CONC 31.6 g/dl (33.0-37.0); MONO # 0.2 10*3/uL (0.1-1.0); MONO % 5.7 % (3.0-9.0); NEUT # 2.6 10*3/uL (2.3-7.9); PLATELET COUNT AUTOMATED 134 10*3/uL (130-400); RED BLOOD COUNT 4.16 10*6/uL (4.50-5.90); RED CELL DISTRI WIDTH 15.3 % (0-14.5); WHITE BLOOD COUNT 3.5 10*3/uL (4.8-10.8)
[2019-09-26 11:23] LABS: ACT PARTIAL THROMBO TIME 25.2 SECONDS (20.0-32.1)
[2019-09-26 11:28] LABS: ALBUMIN 2.8 gm/dl (3.1-4.5); ALKALINE PHOSPHATASE 192 U/L (45-117); BUN 32 mg/dl (7-24); CHLORIDE 119 mmol/L (98-107); CREATININE 1.69 mg/dL (0.70-1.30); LIPASE 142 U/L (73-393); POTASSIUM 3.4 mmol/L (3.5-5.1); SGOT/AST 43 IU/L (3-35); SGPT/ALT 76 U/L (12-78); SODIUM 147 mmol/L (136-145); TOTAL PROTEIN 7.1 gm/dL (6.4-8.2); TROPONIN I < 0.015 ng/ml (<0.045)
[2019-09-26 12:11] VITALS: BP 179/79
[2019-09-26 13:13] VITALS: BP 180/90
[2019-09-26 13:24] LABS: BACTERIA 3+; BILIRUBIN NEGATIVE (NEGATIVE); BLOOD 2+ (NEGATIVE); CLARITY SL CLOUDY (CLEAR); COLOR YELLOW (YELLOW); GLUCOSE NEGATIVE (NEGATIVE); KETONE NEGATIVE (NEGATIVE); LEUKO ESTERASE 2+ (NEGATIVE); NITRITE POSITIVE (NEGATIVE); UROBILINOGEN 0.2 E.U./dl (0.2-1.0); WBC TNTC wbc/hpf (0-5)
[2019-09-26 14:15] VITALS: BP 178/75
[2019-09-26 16:00] VITALS: BP 164/80; BP 176/83
[2019-09-27] VITALS: BP 166/75
[2019-09-27 08:00] VITALS: BP 168/70; BP 181/90
[2019-09-27 11:32] VITALS: BP 158/70
[2019-09-27 16:00] VITALS: BP 160/62
[2019-09-27 20:00] VITALS: BP 161/67
[2019-09-28] VITALS: BP 172/82
[2019-09-28 08:00] VITALS: BP 170/100
[2019-09-28 08:55] LABS: CREATININE 1.41 mg/dL (0.70-1.30); POTASSIUM 3.9 mmol/L (3.5-5.1)
[2019-09-28 12:00] VITALS: BP 150/68
[2019-09-28 16:00] VITALS: BP 170/65
[2019-09-28 20:00] VITALS: BP 153/75
[2019-09-29] VITALS: BP 132/61
[2019-09-29 07:08] LABS: BASO % 0.5 % (0.0-1.0); EOS # 0.2 10*3/uL (0.0-0.4); EOS % 4.2 % (1.0-4.0); HEMATOCRIT 34.3 % (42.0-52.0); LYMPH # 0.9 10*3/uL (1.3-4.4); LYMPH % 24.3 % (27.0-41.0); MEAN CELL VOLUME 90.7 fl (80.0-94.0); MEAN CORPUSCULAR HGB 28.8 pg (27.0-31.0); MEAN CORPUSCULAR HGB CONC 31.8 g/dl (33.0-37.0); MEAN PLATELET VOLUME 10.2 fl (9.6-12.3); MONO # 0.2 10*3/uL (0.1-1.0); MONO % 4.8 % (3.0-9.0); NEUT # 2.5 10*3/uL (2.3-7.9); NEUT % 64.9 % (47.0-73.0); PLATELET COUNT AUTOMATED 198 10*3/uL (130-400); RED BLOOD COUNT 3.78 10*6/uL (4.50-5.90); WHITE BLOOD COUNT 3.8 10*3/uL (4.8-10.8)
[2019-09-29 07:34] LABS: CREATININE 1.44 mg/dL (0.70-1.30)
[2019-09-29 08:00] VITALS: BP 139/79
[2019-09-29 16:00] VITALS: BP 160/81
[2019-09-29 20:00] VITALS: BP 164/65
[2019-09-30] VITALS: BP 142/62
[2019-09-30 08:00] VITALS: BP 134/66
[2019-09-30 16:00] VITALS: BP 146/74
[2019-10-01] VITALS: BP 127/55
[2019-10-01 08:00] VITALS: BP 127/55
[2019-10-01 16:00] VITALS: BP 145/63
[2019-10-02] VITALS: BP 147/60
[2019-10-02 08:00] VITALS: BP 137/71
[2019-10-02] MEDS ORDERED: ERTAPENEM1 GM IV (10:09)
[2019-10-02 16:00] VITALS: BP 152/72
[2019-10-02 20:00] VITALS: BP 146/82
[2019-10-03] VITALS: BP 132/83
[2019-10-03 08:00] VITALS: BP 152/72
[2019-10-03] MEDS ORDERED: TERAZOSIN HCL2 M1 (12:20)
[2019-10-03] MEDS ORDERED: DONEPEZIL HYDROC5 MG PO (12:20)
[2019-10-03] MEDS ORDERED: NORVASC5 MG PO (12:21)
== END 2019-10-03 13:05 | disposition home or self-care (01) | DRG 872 ==
LOC: ED 10:18 → EDHOLD 12:45 → 5E 12:45
PROVIDERS: Emergency Medicine; ADMIT Internal Medicine
PROC: 05HA33Z Insertion of Infusion Device into Left Brachial Vein, Percutaneous Approach (ICD-10-PCS; principal; 2019-10-03)
DX: A41.51 Sepsis due to Escherichia coli [E. coli] (principal); N17.9 Acute kidney failure, unspecified; N39.0 Urinary tract infection, site not specified; E44.0 Moderate protein-calorie malnutrition; Z16.12 Extended spectrum beta lactamase (ESBL) resistance; Z68.1 Body mass index [BMI] 19.9 or less, adult; E87.0 Hyperosmolality and hypernatremia; E86.0 Dehydration; N18.9 Chronic kidney disease, unspecified; I12.9 Hypertensive chronic kidney disease with stage 1 through stage 4 chronic kidney disease, or unspecified chronic kidney disease; E87.6 Hypokalemia; E87.8 Other disorders of electrolyte and fluid balance, not elsewhere classified; J44.9 Chronic obstructive pulmonary disease, unspecified; I71.9 Aortic aneurysm of unspecified site, without rupture; M19.90 Unspecified osteoarthritis, unspecified site; N40.0 Benign prostatic hyperplasia without lower urinary tract symptoms; I25.10 Atherosclerotic heart disease of native coronary artery without angina pectoris; F32.9 Major depressive disorder, single episode, unspecified; M10.9 Gout, unspecified; K21.9 Gastro-esophageal reflux disease without esophagitis; R62.7 Adult failure to thrive; E78.2 Mixed hyperlipidemia; K21.0 Gastro-esophageal reflux disease with esophagitis; Z87.440 Personal history of urinary (tract) infections; Z90.49 Acquired absence of other specified parts of digestive tract; Z98.49 Cataract extraction status, unspecified eye; Z95.1 Presence of aortocoronary bypass graft; Z88.2 Allergy status to sulfonamides; Z88.8 Allergy status to other drugs, medicaments and biological substances; Z88.1 Allergy status to other antibiotic agents; Z79.899 Other long term (current) drug therapy; Z79.82 Long term (current) use of aspirin